=== PATIENT | female | born 1940 | race Caucasian/White ===

== ENCOUNTER 2016-10-19 19:39 | Emergency (ER) | payer MEDICARE, OTHER ==
[2016-10-19] MEDS ORDERED: Sodium Chloride 0.9% 1,000 ML IV ONE (19:56)
[2016-10-19 20:38] LABS: CHLORIDE,CL 90 mmol/L (98-107); SODIUM,NA 126 mmol/L (136-145)
--- NOTE | 2016-10-19 21:35 | EDM.PDOC ---
ED HPI GENERAL MEDICAL PROBLEM - General Chief Complaint: General Stated Complaint: Nausea, vomiting, weakness, headache Time Seen by Provider: 10/19/16 20:07 Source of Information: Reports: Patient, Family History Limitations: Reports: No limitations - History of Present Illness INITIAL COMMENTS - FREE TEXT/NARRATIVE: Patient had sinus drainage and scratchy throat for over a week, and went to her doctor who started her on Augmentin Flonase and Mucinex PSE. Feeling weak today. Nausea, vomited times one. 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 No fevers. Had chills earlier in week. No other c/o. Was told to drink plenty of fluids, Drinks a lot of water anyway. Says she is urinating frequently (just running out of me) Onset: gradual Duration: Day(s): (2-3) Location: Reports: generalized Quality: Reports: Other (no pain) Severity: moderate (weakness) Improves with: Reports: None Worsens with: Reports: None Associated Symptoms: Reports: nausea/vomiting (times one), weakness. 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(s) - Related Data Allergies Allergy/AdvReac Type Severity Reaction Status Date / Time morphine Allergy Hallucinati Verified 10/19/16 20:11 ons NSAIDS (Non-Steroidal Allergy Diarrhea Verified 10/19/16 20:11 Anti-Inflamma piroxicam [From Feldene] Allergy Difficulty Verified 10/19/16 20:11 Breathing Sulfa (Sulfonamide Allergy Abdominal Verified 10/19/16 20:11 Antibiotics) Pain tolmetin sodium Allergy Abdominal Verified 10/19/16 20:11 [From Tolectin] Pain Home Meds: Home Meds Amitriptyline [Elavil] 12.5 mg PO BEDTIME 12/23/13 [History] B Complex With Vitamin C [Super B Complex with C] 1 each PO DAILY 12/23/13 [ History] Cholecalciferol (Vitamin D3) [Vitamin D3] 1,000 unit PO DAILY 12/23/13 [History] Fexofenadine [Fatmata] 180 mg PO DAILY PRN 12/23/13 [History] Hydrochlorothiazide 12.5 mg PO DAILY 12/23/13 [History] Irbesartan [Avapro] 150 mg PO BEDTIME 12/23/13 [History] Multivitamin [Multi-Vitamin Daily] 1 each PO DAILY 12/23/13 [History] Omeprazole [Prilosec] 20 mg PO DAILY 12/23/13 [History] Verapamil [Verelan] 240 mg PO DAILY 12/23/13 [History] Amoxicillin/Potassium Clav [Amox-Clav 875-125 mg Tablet] 1 tab PO BID 10/19/16 [ History] Calcium/Magnesium/Zinc [Calcium & Magnesium plus Zinc] 1 cap PO ASDIRECTED 10/19 [History] Fluticasone Propionate [Flonase] 1 spray NASBOTH BID 10/19/16 [History] Guaifenesin/Pseudoephedrne HCl [Mucinex D ER 600-60 mg Tablet] 1 tab PO Q12H [History] Potassium Chloride 20 meq PO DAILY #10 tablet.er 10/19/16 [Rx] Ranitidine [Zantac] 150 mg PO BEDTIME 10/19/16 [History] Social & Family History - Alcohol Use Days Per Week of Alcohol Use: 0 - Living Situation & Occupation Living situation: Reports: ED ROS GENERAL - Review of Systems Review Of Systems: ROS reveals no pertinent complaints other than HPI. Constitutional: Reports: weakness HEENT: Reports: Sinus problem (pressure - improved since starting antibiotic) Respiratory: Reports: No Symptoms Cardiovascular: Reports: No symptoms Endocrine: Reports: no symptoms, polydypsia, polyuria GI/Abdominal: Reports: No symptoms : Reports: frequency Musculoskeletal: Reports: no symptoms Skin: Reports: no symptoms Neurological: Reports: No Symptoms Psychiatric: Reports: No symptoms Hematologic/Lymphatic: Reports: no symptoms Immunologic: Reports: no symptoms ED EXAM, GENERAL - Physical Exam Exam: See Below Exam Limited By: No limitations General Appearance: alert, WD/WN, no apparent distress Eye Exam: bilateral eye: EOMI, PERRL Ears: normal external exam, hearing grossly normal Nose: normal inspection, normal mucosa Throat/Mouth: Normal inspection, Normal oropharynx, Normal voice, No airway compromise Head: atraumatic, normocephalic Neck: normal inspection, supple, non-tender, full range of motion Respiratory/Chest: no respiratory distress, lungs clear, normal breath sounds, no accessory muscle use Cardiovascular: regular rate, rhythm, no edema, systolic murmur GI/Abdominal: normal bowel sounds, soft, non tender Back Exam: normal inspection, full range of motion. No: CVA tenderness (L), CVA tenderness (R) Extremities: slow capillary refill Neurological: alert, oriented, CN II-XII intact, no motor/sensory deficits, abnormal gait (unsteady) Psychiatric: normal affect, normal mood Skin Exam: Warm, Dry, Intact, Normal color, No rash Lymphatic: no adenopathy Course - Vital Signs Last Recorded V/S: Last Vital Signs Temp 37.1 C 10/19/16 19:48 Pulse 80 10/19/16 19:48 Resp 16 10/19/16 19:48 BP 181/81 H 10/19/16 19:48 Pulse Ox 100 10/19/16 19:48 - Orders/Labs/Meds Orders: Active Orders 24 hr Category Date Time Status Chest 2V [CR] Stat Exams 10/19/16 19:56 Taken Labs: Laboratory Tests 10/19/16 10/19/16 10/19/16 Range/Units 20:10 20:10 20:10 WBC 6.7 (4.0-10.2) K/uL RBC 4.48 (3.77-5.09) M/uL Hgb 13.1 (11.7-15.5) g/dL Hct 36.9 (34.0-46.0) % MCV 82.4 L (84.0-98.0) fL MCH 29.2 (28.2-33.3) pg MCHC 35.5 (31.7-36.0) g/dL RDW 12.2 (11.2-14.1) % Plt Count 209 (150-350) K/uL Neut % (Auto) 75.8 (45.0-80.0) % Lymph % (Auto) 13.7 (10.0-50.0) % [place] % (Auto) 8.8 (2.0-14.0) % Eos % (Auto) 0.4 (0.0-5.0) % Baso % (Auto) 1.3 (0.0-2.0) % Neut # (Auto) 5.10 (1.40-7.00) K/uL Lymph # (Auto) 0.92 (0.50-3.50) K/uL [place] # (Auto) 0.59 (0.00-1.00) K/uL Eos # (Auto) 0.03 (0.00-0.50) K/uL Baso # (Auto) 0.09 (0.00-0.20) K/uL Sodium 126 L (136-145) mmol/L Potassium 3.1 L (3.5-5.1) mmol/L Chloride 90 L (98-107) mmol/L Carbon Dioxide 21.9 (21.0-32.0) mmol/L BUN 10 (7-18) mg/dL Creatinine 0.60 (0.51-1.17) mg/dL Est Cr Clr Drug Dosing TNP Estimated GFR (MDRD) > 60 mL/min Glucose 105 (74-106) mg/dL Calcium 8.6 (8.5-10.1) mg/dL Magnesium 1.7 L (1.8-2.4) mg/dL Total Bilirubin 0.8 (0.2-1.0) mg/dL AST 22 (15-37) U/L ALT 34 (12-78) U/L Alkaline Phosphatase 90 (46-116) IU/L Troponin I 0.001 (0.000-0.056) ng/mL Total Protein 7.5 (6.4-8.2) g/dL Albumin 4.1 (3.4-5.0) g/dL Specimen Type Urine Color Urine Appearance Urine pH (5.0-9.0) Ur Specific [place] (1.005-1.030) Urine Protein (NEGATIVE) mg/dL Urine Glucose (UA) (NEGATIVE) mg/dL Urine Ketones (NEGATIVE) mg/dL Urine Occult Blood (NEGATIVE) Urine Nitrite (NEGATIVE) Urine Bilirubin (NEGATIVE) Urine Urobilinogen (0.2-1.0) E.U./dL Ur Leukocyte Esterase (NEGATIVE) Urine RBC /HPF Urine WBC /HPF Ur Epithelial Cells /LPF Amorphous Sediment (0/HPF) /HPF Urine Bacteria (NONE TO FEW) /HPF 10/19/16 Range/Units 20:50 WBC (4.0-10.2) K/uL RBC (3.77-5.09) M/uL Hgb (11.7-15.5) g/dL Hct (34.0-46.0) % MCV (84.0-98.0) fL MCH (28.2-33.3) pg MCHC (31.7-36.0) g/dL RDW (11.2-14.1) % Plt Count (150-350) K/uL Neut % (Auto) (45.0-80.0) % Lymph % (Auto) (10.0-50.0) % [place] % (Auto) (2.0-14.0) % Eos % (Auto) (0.0-5.0) % Baso % (Auto) (0.0-2.0) % Neut # (Auto) (1.40-7.00) K/uL Lymph # (Auto) (0.50-3.50) K/uL [place] # (Auto) (0.00-1.00) K/uL Eos # (Auto) (0.00-0.50) K/uL Baso # (Auto) (0.00-0.20) K/uL Sodium (136-145) mmol/L Potassium (3.5-5.1) mmol/L Chloride (98-107) mmol/L Carbon Dioxide (21.0-32.0) mmol/L BUN (7-18) mg/dL Creatinine (0.51-1.17) mg/dL Est Cr Clr Drug Dosing Estimated GFR (MDRD) mL/min Glucose (74-106) mg/dL Calcium (8.5-10.1) mg/dL Magnesium (1.8-2.4) mg/dL Total Bilirubin (0.2-1.0) mg/dL AST (15-37) U/L ALT (12-78) U/L Alkaline Phosphatase (46-116) IU/L Troponin I (0.000-0.056) ng/mL Total Protein (6.4-8.2) g/dL Albumin (3.4-5.0) g/dL Specimen Type Urincc Urine Color Light yellow Urine Appearance Slightly cloudy Urine pH 7.5 (5.0-9.0) Ur Specific [place] 1.015 (1.005-1.030) Urine Protein Negative (NEGATIVE) mg/dL Urine Glucose (UA) Negative (NEGATIVE) mg/dL Urine Ketones 15 H (NEGATIVE) mg/dL Urine Occult Blood Trace-intact H (NEGATIVE) Urine Nitrite Negative (NEGATIVE) Urine Bilirubin Negative (NEGATIVE) Urine Urobilinogen 0.2 (0.2-1.0) E.U./dL Ur Leukocyte Esterase Negative (NEGATIVE) Urine RBC 0-5 /HPF Urine WBC Not seen /HPF Ur Epithelial Cells Not seen /LPF Amorphous Sediment Moderate H (0/HPF) /HPF Urine Bacteria Moderate H (NONE TO FEW) /HPF Meds: Medications Discontinued Medications Generic Name Dose Route Start Last Admin Trade Name Bre PRN Reason Stop Dose Admin Sodium Chloride 1,000 mls @ 999 mls/hr 10/19/16 19:56 10/19/16 20:12 Normal Saline IV 10/19/16 20:56 999 mls/hr .BOLUS ONE Administration Potassium Chloride 40 meq 10/19/16 21:42 Klor-Con M20 PO 10/19/16 21:43 ONETIME ONE - Re-Assessments/Exams Free Text/Narrative Re-Assessment/Exam: 10/19/16 21:40 Improved with first NS Departure - Departure Time of Disposition: 22:30 Disposition: Home, Self-Care 01 Condition: good Clinical Impression: Hyponatremia, Hypokalemia, Polydipsia Prescriptions: Potassium Chloride 20 meq PO DAILY #10 tablet.er Forms: ED Department Discharge - Problem List Review Problem List Initiated/Reviewed/Updated: No - My Orders Last 24 Hours: My Active Orders 10/19/16 19:56 Chest 2V [CR] Stat - Assessment/Plan Last 24 Hours: My Active Orders 10/19/16 19:56 Chest 2V [CR] Stat Assessment:: 1. Hyponatremia - secondary to polydipsia 2. Hypomagnesemia, HypoKalemia 3. Resolving upper respiratory infection Plan: 1. Take the potassium pills for the next 10 days. 2. Decrease plain water consumption. Increase salt intake. 3. Eat potassium rich foods 4. Discuss taking magnesium pills with your doctor, and have your blood levels of sodium, potassium, and magnesium rechecked
[2016-10-19] MEDS ORDERED: Potassium Chloride 20 MEQ Tab.ER PO ONE (21:42)
[2016-10-19] MEDS ORDERED: Sodium Chloride 0.9% 1,000 ML IV SCH (21:45)
[2016-10-19] MEDS ORDERED: Calcium Carbonate 500 MG Tab.Chew PO ONE (21:51)
[2016-10-19] MEDS ORDERED: Meclizine 25 MG Tab PO ONE (22:21)
[2016-10-20 00:19] VITALS: BP 180/70
== END 2016-10-19 23:44 | disposition home or self-care (01) ==
LOC: LL.ED 19:39
DX: E87.1 Hypo-osmolality and hyponatremia (principal); E87.6 Hypokalemia; R63.1 Polydipsia; Z88.6 Allergy status to analgesic agent; Z88.2 Allergy status to sulfonamides; Z88.8 Allergy status to other drugs, medicaments and biological substances; Z79.899 Other long term (current) drug therapy
CPT/HCPCS: 36415; 71020; 80053; 81001; 83735; 84484; 85025; 87804; 96361; 96365; 99285; A9270; J7030; 99283; J3475

== ENCOUNTER 2017-07-21 09:04 | Emergency (ER) | payer MEDICARE, OTHER ==
[2017-07-21] MEDS ORDERED: Sodium Chloride 0.9% 1,000 ML IV SCH (09:15)
[2017-07-21 10:21] LABS: CHLORIDE,CL 94 mmol/L (98-107); SODIUM,NA 130 mmol/L (136-145)
--- NOTE | 2017-07-21 10:51 | EDM.PDOC ---
ED HPI GENERAL MEDICAL PROBLEM - General Chief Complaint: General Stated Complaint: weak, dizzy, diarrhea Time Seen by Provider: 07/21/17 09:15 Source of Information: Reports: Patient History Limitations: Reports: No Limitations - History of Present Illness INITIAL COMMENTS - FREE TEXT/NARRATIVE: Patient is a 77-year-old who came into the ER for evaluation secondary to multiple episodes of diarrhea about 9 months ago she had similar episodes and was hyponatremic and hypo-magnesium and hypokalemia. At this time patient is feeling pretty good but concern her diarrhea seems to be controlled at this point states that when she gets anxious she also gets diarrhea and the has made her anxious. 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 (see below) (Patient took Zantac and Pepto- Bismol tonight) - Related Data Allergies Allergy/AdvReac Type Severity Reaction Status Date / Time morphine Allergy Hallucinati Verified 07/21/17 09:13 ons NSAIDS (Non-Steroidal Allergy Diarrhea Verified 07/21/17 09:13 Anti-Inflamma piroxicam [From Feldene] Allergy Difficulty Verified 07/21/17 09:13 Breathing Sulfa (Sulfonamide Allergy Abdominal Verified 07/21/17 09:13 Antibiotics) Pain tolmetin sodium Allergy Abdominal Verified 07/21/17 09:13 [From Tolectin] Pain Home Meds: Home Meds Amitriptyline [Elavil] 12.5 mg PO BEDTIME 12/23/13 [History] B Complex With Vitamin C [Super B Complex with C] 1 each PO DAILY 12/23/13 [ History] Cholecalciferol (Vitamin D3) [Vitamin D3] 1,000 unit PO DAILY 12/23/13 [History] Hydrochlorothiazide 12.5 mg PO DAILY 12/23/13 [History] Irbesartan [Avapro] 150 mg PO BEDTIME 12/23/13 [History] Multivitamin [Multi-Vitamin Daily] 1 each PO DAILY 12/23/13 [History] Verapamil [Verelan] 240 mg PO DAILY 12/23/13 [History] Ranitidine [Zantac] 150 mg PO BEDTIME 10/19/16 [History] Past Medical History HEENT History: Reports: Impaired Vision Cardiovascular History: Reports: Heart Murmur, Hypertension Endocrine/Metabolic History: Reports: Vitamin D Deficiency Social & Family History - Tobacco Use Smoking Status *Q: Never Smoker - Caffeine Use Caffeine Use: Reports: Tea - Alcohol Use Days Per Week of Alcohol Use: 0 - Recreational Drug Use Recreational Drug Use: No - Living Situation & Occupation Living situation: Reports: ED ROS GENERAL - Review of Systems Review Of Systems: See Below Constitutional: Reports: No Symptoms HEENT: Reports: No Symptoms Respiratory: Reports: No Symptoms Cardiovascular: Reports: No Symptoms Endocrine: Reports: No Symptoms GI/Abdominal: Reports: Diarrhea, Nausea : Reports: No Symptoms Musculoskeletal: Reports: No Symptoms Skin: Reports: No Symptoms ED EXAM, GENERAL - Physical Exam Exam: See Below Exam Limited By: No Limitations General Appearance: Alert, WD/WN, No Apparent Distress Ears: Normal External Exam, Normal Canal, Hearing Grossly Normal, Normal TMs Ear Exam: Bilateral Ear: Auricle Normal, Canal Normal, TM normal Nose: Normal Inspection, Normal Mucosa, No Blood Throat/Mouth: Normal Inspection, Normal Lips, Normal Teeth, Normal Gums, Normal Oropharynx, Normal Voice, No Airway Compromise Head: Atraumatic, Normocephalic Neck: Normal Inspection, Supple, Non-Tender, Full Range of Motion Respiratory/Chest: No Respiratory Distress, Lungs Clear, Normal Breath Sounds, No Accessory Muscle Use, Chest Non-Tender Cardiovascular: Normal Peripheral Pulses, Regular Rate, Rhythm, Tachycardia, Systolic Murmur GI/Abdominal: Normal Bowel Sounds, Soft, Non-Tender, No Organomegaly, No Distention, No Abnormal Bruit, No Mass (Female) Exam: Deferred Rectal (Female) Exam: Deferred Back Exam: Normal Inspection, Full Range of Motion, NT Extremities: Normal Inspection, Normal Range of Motion, Non-Tender, Normal Capillary Refill, No Pedal Edema Neurological: Alert, Oriented, CN II-XII Intact, Normal Cognition, Normal Gait, Normal Reflexes, No Motor/Sensory Deficits Psychiatric: Normal Affect, Normal Mood Skin Exam: Warm, Dry, Intact, Normal Color, No Rash Course - Orders/Labs/Meds Orders: Active Orders 24 hr Category Date Time Status Sodium Chloride 0.9% [Normal Saline] 1,000 ml Med 07/21/17 09:15 Active IV ASDIRECTED Medication Orders Sodium Chloride (Normal Saline) 1,000 mls @ 150 mls/hr IV ASDIRECTED [facility] Labs: Laboratory Tests 07/21/17 07/21/17 Range/Units 09:26 09:56 WBC 9.6 (4.0-10.2) K/uL RBC 4.60 (3.77-5.09) M/uL Hgb 13.8 (11.7-15.5) g/dL Hct 39.6 (34.0-46.0) % MCV 86.1 D (84.0-98.0) fL MCH 30.0 (28.2-33.3) pg MCHC 34.8 (31.7-36.0) g/dL RDW 12.6 (11.2-14.1) % Plt Count 198 (150-350) K/uL Neut % (Auto) 80.7 H (45.0-80.0) % Lymph % (Auto) 11.8 (10.0-50.0) % [place] % (Auto) 6.8 (2.0-14.0) % Eos % (Auto) 0.3 (0.0-5.0) % Baso % (Auto) 0.4 (0.0-2.0) % Neut # (Auto) 7.74 H (1.40-7.00) K/uL Lymph # (Auto) 1.13 (0.50-3.50) K/uL [place] # (Auto) 0.65 (0.00-1.00) K/uL Eos # (Auto) 0.03 (0.00-0.50) K/uL Baso # (Auto) 0.04 (0.00-0.20) K/uL Sodium 130 L (136-145) mmol/L Potassium 3.4 L (3.5-5.1) mmol/L Chloride 94 L (98-107) mmol/L Carbon Dioxide 24.4 (21.0-32.0) mmol/L BUN 11 (7-18) mg/dL Creatinine 0.63 (0.51-1.17) mg/dL Est Cr Clr Drug Dosing 54.57 mL/min Estimated GFR (MDRD) > 60 mL/min Glucose 106 (74-106) mg/dL Calcium 9.3 (8.5-10.1) mg/dL Magnesium 1.7 L (1.8-2.4) mg/dL Total Bilirubin 0.5 (0.2-1.0) mg/dL AST 20 (15-37) U/L ALT 29 (12-78) U/L Alkaline Phosphatase 90 (46-116) IU/L Total Protein 7.1 (6.4-8.2) g/dL Albumin 3.9 (3.4-5.0) g/dL Meds: Medications Generic Name Dose Route Start Last Admin Trade Name Freq PRN Reason Stop Dose Admin Sodium Chloride 1,000 mls @ 150 mls/hr 07/21/17 09:15 Normal Saline IV ASDIRECTED YOGESH Departure - Departure Time of Disposition: 10:55 Disposition: Home, Self-Care 01 Clinical Impression: Gastroenteritis - Discharge Information Referrals: Gordon Dinero MD [Primary Care Provider] - Care Plan Goals: At this time patient will be sent home she is to oral hydrate with Gatorade and can take magnesium oxide 200 twice a day also she is to continue the Pepto- Bismol and follow-up with private M.D. - My Orders Last 24 Hours: My Active Orders 07/21/17 09:15 Sodium Chloride 0.9% [Normal Saline] 1,000 ml IV ASDIRECTED - Assessment/Plan Last 24 Hours: My Active Orders 07/21/17 09:15 Sodium Chloride 0.9% [Normal Saline] 1,000 ml IV ASDIRECTED
[2017-07-21 16:29] VITALS: BP 143/64
== END 2017-07-21 11:45 | disposition home or self-care (01) ==
LOC: LL.ED 09:04
DX: K52.9 Noninfective gastroenteritis and colitis, unspecified (principal); I10 Essential (primary) hypertension; Z88.5 Allergy status to narcotic agent; Z88.8 Allergy status to other drugs, medicaments and biological substances; Z88.2 Allergy status to sulfonamides; Z79.899 Other long term (current) drug therapy
CPT/HCPCS: 36415; 80053; 83735; 85025; 96360; 96361; 99284; J7030; 99283

== ENCOUNTER 2019-03-14 21:56 | Observation (INO) | payer MEDICARE, OTHER ==
[2019-03-14 22:44] LABS: CHLORIDE,CL 87 mmol/L (98-107)
[2019-03-14 22:47] LABS: SODIUM,NA 123 mmol/L (136-145)
--- NOTE | 2019-03-14 23:13 | EDM.PDOC ---
ED HPI GENERAL MEDICAL PROBLEM - General Chief Complaint: General Stated Complaint: Nausea, weakness Time Seen by Provider: 03/14/19 22:40 Source of Information: Reports: Patient History Limitations: Reports: No Limitations - History of Present Illness INITIAL COMMENTS - FREE TEXT/NARRATIVE: Patient present to ER with complaint of "not feeling well". Patient vague in describing specific complaints. During ROS it was noted that she feels a bit lightheaded. Was drinking Gatorade and coughed while she drank, which led her to throw up once. She says she drinks Gatorade because she often has low electrolytes. No additional nausea /emesis/bowel changes reported. She also feels mildly weak. Patient feels that this is due to her electrolytes being low, and says that she has been evaluated for similar complaints in past and it was always due to her low electrolytes. No fevers, but she thinks she may have been chilled earlier. No HEENT changes such as headache/sore throat/cold symptoms/vision changes/ear complaints. No specific cough/wheezing/SOB/pleuritic pain Denies abdominal pain, nausea. No bowel changes. No UTI complaints/urinary changes. Denies focal neuro changes/rashes. Has scheduled colonoscopy in several days. Just started the diet today and took two Dulcolax this evening. Throat Pain Score (Numeric/FACES): 4 - Related Data Allergies Allergy/AdvReac Type Severity Reaction Status Date / Time morphine Allergy Hallucinati Verified 03/14/19 21:58 ons NSAIDS (Non-Steroidal Allergy Diarrhea Verified 03/14/19 21:58 Anti-Inflamma piroxicam [From Feldene] Allergy Difficulty Verified 03/14/19 21:58 Breathing Sulfa (Sulfonamide Allergy Abdominal Verified 03/14/19 21:58 Antibiotics) Pain tolmetin sodium Allergy Abdominal Verified 03/14/19 21:58 [From Tolectin] Pain Home Meds: Home Meds Amitriptyline [Elavil] 12.5 mg PO BEDTIME 12/23/13 [History] B Complex With Vitamin C [Super B Complex with C] 1 each PO DAILY 12/23/13 [ History] Irbesartan [Avapro] 150 mg PO BEDTIME 12/23/13 [History] Multivitamin [Multi-Vitamin Daily] 1 each PO DAILY 12/23/13 [History] Verapamil [Verelan] 240 mg PO DAILY 12/23/13 [History] hydroCHLOROthiazide [Hydrochlorothiazide] 12.5 mg PO DAILY 12/23/13 [History] Ranitidine [Zantac] 150 mg PO BEDTIME 10/19/16 [History] Calcium Carb/Mag Ox/Zinc Sulf [Pfrxceh-Xxvxtldpm-Mezv Tablet] 1 tab PO DAILY [History] Cranberry Fruit Extract [Cranberry] 1 tab PO DAILY 03/14/19 [History] Docusate Sodium [Stool Softener] 1 tab PO BEDTIME 03/14/19 [History] Lactobac Cmb #3/Fos/Pantethine [Probiotic & Acidophilus] 1 tab PO DAILY [History] Potassium 1 tab PO DAILY 03/14/19 [History] Past Medical History HEENT History: Reports: Allergic Rhinitis, Impaired Vision Cardiovascular History: Reports: Heart Murmur, Hypertension Gastrointestinal History: Reports: Colon Polyp, GERD, Hiatal Hernia Genitourinary History: Reports: UTI, Recurrent, Other (See Below) Other Genitourinary History: Difficulty emptying bladder 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: Neurological History: Reports: Migraines Psychiatric History: Reports: Anxiety Endocrine/Metabolic History: Reports: Vitamin D Deficiency - Past Surgical History HEENT Surgical History: Reports: Tonsillectomy GI Surgical History: Reports: Appendectomy, Cholecystectomy, Colonoscopy, EGD Neurological Surgical History: Reports: Lumbar Spine Other Neurological Surgeries/Procedures: Surgery to repair pinched nerve Social & Family History - Tobacco Use Smoking Status *Q: Never Smoker - Caffeine Use Caffeine Use: Reports: None - Alcohol Use Alcohol Use History: No - Recreational Drug Use Recreational Drug Use: No - Living Situation & Occupation Living situation: Reports: ED ROS GENERAL - Review of Systems Review Of Systems: ROS reveals no pertinent complaints other than HPI. ED EXAM, GENERAL - Physical Exam Exam: See Below Exam Limited By: No Limitations General Appearance: Alert, No Apparent Distress, Anxious Eye Exam: Bilateral Eye: EOMI, PERRL Ears: Normal External Exam, Normal Canal Nose: Normal Inspection Throat/Mouth: Normal Lips, Normal Voice, No Airway Compromise Head: Atraumatic, Normocephalic Neck: Normal Inspection, Supple, Non-Tender, Full Range of Motion Respiratory/Chest: No Respiratory Distress, Lungs Clear, Normal Breath Sounds, No Accessory Muscle Use, Chest Non-Tender Cardiovascular: Normal Peripheral Pulses, Regular Rate, Rhythm, No Edema, Systolic Murmur GI/Abdominal: Normal Bowel Sounds, Soft, Non-Tender, No Distention (Female) Exam: Deferred Rectal (Female) Exam: Deferred Back Exam: Normal Inspection. No: CVA Tenderness (L), CVA Tenderness (R), Muscle Spasm Extremities: Normal Inspection, Non-Tender, Normal Capillary Refill Neurological: Alert, Oriented, Normal Cognition, Normal Gait, No Motor/Sensory Deficits Psychiatric: Anxious Skin Exam: Warm, Dry, Intact, Normal Color Course - Vital Signs Last Recorded V/S: Last Vital Signs Temp 36.4 C 03/14/19 21:56 Pulse 67 03/14/19 22:56 Resp 16 03/14/19 22:56 BP 164/65 H 03/14/19 22:56 Pulse Ox 99 03/14/19 22:56 - Orders/Labs/Meds Orders: Active Orders 24 hr Category Date Time Status UA W/MICROSCOPIC [URIN] Stat Lab 03/14/19 22:12 Ordered Labs: Laboratory Tests 03/14/19 03/14/19 03/14/19 Range/Units 20:20 22:20 22:20 WBC 9.1 (4.0-10.2) K/uL RBC 4.34 (3.77-5.09) M/uL Hgb 13.4 (11.7-15.5) g/dL Hct 36.9 (34.0-46.0) % MCV 85.0 (84.0-98.0) fL MCH 30.9 (28.2-33.3) pg MCHC 36.3 H (31.7-36.0) g/dL RDW 12.1 (11.2-14.1) % Plt Count 195 (150-350) K/uL Neut % (Auto) 70.1 (45.0-80.0) % Lymph % (Auto) 20.8 (10.0-50.0) % [place] % (Auto) 7.9 (2.0-14.0) % Eos % (Auto) 1.0 (0.0-5.0) % Baso % (Auto) 0.2 (0.0-2.0) % Neut # (Auto) 6.35 (1.40-7.00) K/uL Lymph # (Auto) 1.88 (0.50-3.50) K/uL [place] # (Auto) 0.72 (0.00-1.00) K/uL Eos # (Auto) 0.09 (0.00-0.50) K/uL Baso # (Auto) 0.02 (0.00-0.20) K/uL Sodium 123 L* (136-145) mmol/L Potassium 3.0 L (3.5-5.1) mmol/L Chloride 87 L (98-107) mmol/L Carbon Dioxide 23.1 (21.0-32.0) mmol/L BUN 13 (7-18) mg/dL Creatinine 0.62 (0.51-1.17) mg/dL Est Cr Clr Drug Dosing 53.71 mL/min Estimated GFR (MDRD) > 60 mL/min Glucose 125 H (74-106) mg/dL Calcium 8.4 L (8.5-10.1) mg/dL Magnesium 1.5 L (1.8-2.4) mg/dL Total Bilirubin 0.7 (0.2-1.0) mg/dL AST 22 (15-37) U/L ALT 29 (12-78) U/L Alkaline Phosphatase 84 (46-116) IU/L Troponin I 0.000 (0.000-0.056) ng/mL Total Protein 7.2 (6.4-8.2) g/dL Albumin 3.8 (3.4-5.0) g/dL - Re-Assessments/Exams Free Text/Narrative Re-Assessment/Exam: Non-focal exam. Noted to have low Mg/K/Na/CL on labs. WBC normal. Patient is uncertain is to her "normal" levels of electrolytes and notes that they are just always low. Uncertain how much change today's values reflect. Low Mg and Na are related to fatigue/weakness/lightheaded sensation. However there appears to be a definite anxiety component. Son also feels that anxiety is always an issue when he has brought his mother to the ER/doctor for similar complaints. He says that the colonoscopy is the likely trigger at this time. Triggers in the past have included upcoming trips/flights and other events. When patient agreed to be admitted observation and receive treatment for the deficiencies, she immediately requested something for her anxiety and reported to us that she was very anxious now that she would not be able to go home. Departure - Departure Time of Disposition: 23:08 Disposition: Refer to Observation Condition: Good Clinical Impression: Hypokalemia, Hyponatremia, Hypomagnesemia - Discharge Information *PRESCRIPTION DRUG MONITORING PROGRAM REVIEWED*: Not Applicable *COPY OF PRESCRIPTION DRUG MONITORING REPORT IN PATIENT RINA: Not Applicable Referrals: Gordon Dinero MD [Primary Care Provider] - - Problem List & Annotations (1) Hyponatremia SNOMED Code(s): 48072321 Code(s): E87.1 - HYPO-OSMOLALITY AND HYPONATREMIA Status: Chronic Priority: High Current Visit: Yes Annotation/Comment:: Exacerbation of hyponatremia. Will give hypertonic saline overnight and recheck levels in AM (2) Hypokalemia SNOMED Code(s): 69150447 Code(s): E87.6 - HYPOKALEMIA Status: Chronic Priority: Medium Current Visit: Yes Annotation/Comment:: Additional supplementation of potassium will be given. Recheck levels tomorrow. (3) Hypomagnesemia SNOMED Code(s): 098985073 Code(s): E83.42 - HYPOMAGNESEMIA Status: Chronic Priority: High Current Visit: Yes Annotation/Comment:: History of low Magnesium. Will give supplemental Mag overnight and recheck level tomorrow. Increase supplement dose at time of discharge. (4) GERD (gastroesophageal reflux disease) SNOMED Code(s): 033514263 Code(s): K21.9 - GASTRO-ESOPHAGEAL REFLUX DISEASE WITHOUT ESOPHAGITIS Status: Chronic Priority: Low Current Visit: No Annotation/Comment:: Patient admits to poor eating habits and snacking before bed, exacerbating symptoms. Time spent encouraging patient to make dietary changes such as not eating 3 hours prior to bedtime and avoiding processed food/common heartburn triggers. Patient is uncertain if she can make these changes. Qualifiers: Esophagitis presence: esophagitis presence not specified Qualified Code(s) : K21.9 - Gastro-esophageal reflux disease without esophagitis (5) Anxiety SNOMED Code(s): 78051480 Code(s): F41.9 - ANXIETY DISORDER, UNSPECIFIED Status: Chronic Priority: Medium Current Visit: Yes Annotation/Comment:: Patient is anxious about her colonoscopy prep. Son notes that patient often presents to ER with complaints of not feeling well/dizzy when she is stressed and experiencing anxiety. He feels tonight's visit is related to the colonoscopy scheduled. - Problem List Review Problem List Initiated/Reviewed/Updated: Yes - My Orders Last 24 Hours: My Active Orders 03/14/19 22:12 UA W/MICROSCOPIC [URIN] Stat - Assessment/Plan Admission H&P: Please use this note as an admission H&P Last 24 Hours: My Active Orders 03/14/19 22:12 UA W/MICROSCOPIC [URIN] Stat Assessment:: As above. Plan: Patient stable and suitable for general supervision. Will give supplemental Na/K /Mg overnight. Anticipate patient will likely be discharged within 24 hours.
[2019-03-14] MEDS ORDERED: LORazepam 2 MG/ML SDV IVPUSH ONE (23:28)
[2019-03-14] MEDS ORDERED: Ondansetron 4 MG/2 ML SDV IVPUSH ONE (23:28)
[2019-03-14] MEDS ORDERED: Sodium Chloride 3% 500 ML IV SCH (23:30)
[2019-03-14] MEDS ORDERED: Pantoprazole 40 MG Vial IVPUSH ONE (23:33)
[2019-03-14] MEDS ORDERED: Ondansetron 4 MG/2 ML SDV IVPUSH PRN (23:34)
[2019-03-14] MEDS ORDERED: LORazepam 1 MG Tab PO PRN (23:38)
[2019-03-14] MEDS ORDERED: Docusate Sodium 100 MG Cap PO SCH (23:47)
[2019-03-15] MEDS ORDERED: Potassium Chloride 10 MEQ Tab.ER PO ONE ×2 (00:01→04:00)
[2019-03-15] MEDS: Sodium Chloride 0.9% 10 ML Syringe FLUSH PRN ×3 (00:11→10:25)
[2019-03-15 07:38] LABS: HEMOGLOBIN A1C 5.5 % (4.3-5.7)
[2019-03-15 07:51] LABS: CHLORIDE,CL 92 mmol/L (98-107); SODIUM,NA 126 mmol/L (136-145)
[2019-03-15] MEDS ORDERED: Verapamil 120 MG Tab.ER PO SCH (08:00)
[2019-03-15] MEDS ORDERED: Hydrochlorothiazide 25 MG Tab PO SCH (08:00)
[2019-03-15] MEDS: Sodium Chloride 1 GM Tab PO SCH ×3 (10:11→16:43)
[2019-03-15] MEDS ORDERED: Sodium Chloride 1 GM Tab PO ONE ×2 (13:16→19:00)
--- NOTE | 2019-03-15 14:12 | PCM.PN ---
- General Info Date of Service: 03/15/19 Admission Dx/Problem (Free Text): Patient admitted for treatment of hyponatremia, along with low K and Mg. Presenting complaints included fatigue, mild lightheadedness, single episode emesis. History of chronically low levels Na/K/Mg. Has had similar symptoms before when levels get really low per self report. Subjective Update: Patient feels improved. 3 episodes of emesis since admission to observation ( one was after taking a NaCl tab). She says that she feels much better now. Tolerating clear liquid diet. Functional Status: Reports: Pain Controlled, Tolerating Diet, Ambulating, Urinating. Denies: New Symptoms - Review of Systems General: Reports: Fatigue. Denies: Fever, Chills, Night Sweats HEENT: Reports: Glasses Pulmonary: Reports: No Symptoms Cardiovascular: Reports: No Symptoms Gastrointestinal: Reports: Nausea (currently none), Vomiting (currently none). Denies: Abdominal Pain, Constipation, Diarrhea, Difficulty Swallowing Genitourinary: Reports: No Symptoms Musculoskeletal: Reports: No Symptoms (no acute changes from baseline) Skin: Reports: No Symptoms Neurological: Reports: Dizziness (mild). Denies: Headache, Numbness, Tingling, Trouble Speaking, Difficulty Walking, Change in Speech, Gait Disturbance Psychiatric: Reports: Anxiety - Patient Data Vitals - Most Recent: Last Vital Signs Temp 36.4 C 03/15/19 11:07 Pulse 73 03/15/19 11:07 Resp 12 03/15/19 11:07 BP 158/79 H 03/15/19 11:07 Pulse Ox 100 03/15/19 11:07 Weight - Most Recent: 56.019 kg I&O - Last 24 Hours: Intake & Output 03/14/19 03/15/19 03/15/19 22:59 06:59 14:59 Intake Total 784 2214 Output Total 1650 1300 Balance -866 914 Lab Results Last 24 Hours: Laboratory Results - last 24 hr 03/14/19 03/14/19 03/14/19 Range/Units 20:20 22:20 22:20 WBC 9.1 (4.0-10.2) K/uL RBC 4.34 (3.77-5.09) M/uL Hgb 13.4 (11.7-15.5) g/dL Hct 36.9 (34.0-46.0) % MCV 85.0 (84.0-98.0) fL MCH 30.9 (28.2-33.3) pg MCHC 36.3 H (31.7-36.0) g/dL RDW 12.1 (11.2-14.1) % Plt Count 195 (150-350) K/uL Neut % (Auto) 70.1 (45.0-80.0) % Lymph % (Auto) 20.8 (10.0-50.0) % [place] % (Auto) 7.9 (2.0-14.0) % Eos % (Auto) 1.0 (0.0-5.0) % Baso % (Auto) 0.2 (0.0-2.0) % Neut # (Auto) 6.35 (1.40-7.00) K/uL Lymph # (Auto) 1.88 (0.50-3.50) K/uL [place] # (Auto) 0.72 (0.00-1.00) K/uL Eos # (Auto) 0.09 (0.00-0.50) K/uL Baso # (Auto) 0.02 (0.00-0.20) K/uL Sodium 123 L* (136-145) mmol/L Potassium 3.0 L (3.5-5.1) mmol/L Chloride 87 L (98-107) mmol/L Carbon Dioxide 23.1 (21.0-32.0) mmol/L BUN 13 (7-18) mg/dL Creatinine 0.62 (0.51-1.17) mg/dL Est Cr Clr Drug Dosing 53.71 mL/min Estimated GFR (MDRD) > 60 mL/min Glucose 125 H (74-106) mg/dL Hemoglobin A1c (4.3-5.7) % Calcium 8.4 L (8.5-10.1) mg/dL Magnesium 1.5 L (1.8-2.4) mg/dL Total Bilirubin 0.7 (0.2-1.0) mg/dL AST 22 (15-37) U/L ALT 29 (12-78) U/L Alkaline Phosphatase 84 (46-116) IU/L Troponin I 0.000 (0.000-0.056) ng/mL Total Protein 7.2 (6.4-8.2) g/dL Albumin 3.8 (3.4-5.0) g/dL Amylase (25-115) U/L Lipase (73-393) U/L Specimen Type Urine Color (YELLOW) Urine Appearance (CLEAR) Urine pH (5.0-9.0) Ur Specific [place] (1.005-1.030) Urine Protein (NEGATIVE) mg/dL Urine Glucose (UA) (NEGATIVE) mg/dL Urine Ketones (NEGATIVE) mg/dL Urine Occult Blood (NEGATIVE) Urine Nitrite (NEGATIVE) Urine Bilirubin (NEGATIVE) Urine Urobilinogen (0.2-1.0) E.U./dL Ur Leukocyte Esterase (NEGATIVE) Urine RBC /HPF Urine WBC /HPF Ur Epithelial Cells /LPF Urine Bacteria (NONE TO FEW) /HPF 03/14/19 03/15/19 03/15/19 Range/Units 23:10 07:15 07:15 WBC 8.0 (4.0-10.2) K/uL RBC 4.61 (3.77-5.09) M/uL Hgb 14.2 (11.7-15.5) g/dL Hct 39.1 (34.0-46.0) % MCV 84.8 (84.0-98.0) fL MCH 30.8 (28.2-33.3) pg MCHC 36.3 H (31.7-36.0) g/dL RDW 12.1 (11.2-14.1) % Plt Count 217 (150-350) K/uL Neut % (Auto) 64.7 (45.0-80.0) % Lymph % (Auto) 23.5 (10.0-50.0) % [place] % (Auto) 10.1 (2.0-14.0) % Eos % (Auto) 1.4 (0.0-5.0) % Baso % (Auto) 0.3 (0.0-2.0) % Neut # (Auto) 5.16 (1.40-7.00) K/uL Lymph # (Auto) 1.87 (0.50-3.50) K/uL [place] # (Auto) 0.80 (0.00-1.00) K/uL Eos # (Auto) 0.11 (0.00-0.50) K/uL Baso # (Auto) 0.02 (0.00-0.20) K/uL Sodium 126 L (136-145) mmol/L Potassium 3.6 (3.5-5.1) mmol/L Chloride 92 L (98-107) mmol/L Carbon Dioxide 24.6 (21.0-32.0) mmol/L BUN 8 (7-18) mg/dL Creatinine 0.52 (0.51-1.17) mg/dL Est Cr Clr Drug Dosing 64.04 mL/min Estimated GFR (MDRD) > 60 mL/min Glucose 101 (74-106) mg/dL Hemoglobin A1c (4.3-5.7) % Calcium 8.2 L (8.5-10.1) mg/dL Magnesium 2.2 (1.8-2.4) mg/dL Total Bilirubin (0.2-1.0) mg/dL AST (15-37) U/L ALT (12-78) U/L Alkaline Phosphatase (46-116) IU/L Troponin I (0.000-0.056) ng/mL Total Protein (6.4-8.2) g/dL Albumin (3.4-5.0) g/dL Amylase (25-115) U/L Lipase (73-393) U/L Specimen Type Urinvoid Urine Color Yellow (YELLOW) Urine Appearance Slightly cloudy H (CLEAR) Urine pH 7.5 (5.0-9.0) Ur Specific [place] 1.015 (1.005-1.030) Urine Protein Negative (NEGATIVE) mg/dL Urine Glucose (UA) Negative (NEGATIVE) mg/dL Urine Ketones Negative (NEGATIVE) mg/dL Urine Occult Blood Trace-intact H (NEGATIVE) Urine Nitrite Positive H (NEGATIVE) Urine Bilirubin Negative (NEGATIVE) Urine Urobilinogen 0.2 (0.2-1.0) E.U./dL Ur Leukocyte Esterase Negative (NEGATIVE) Urine RBC 0-5 /HPF Urine WBC 0-5 /HPF Ur Epithelial Cells Not seen /LPF Urine Bacteria Many H (NONE TO FEW) /HPF 03/15/19 03/15/19 Range/Units 07:15 07:15 WBC (4.0-10.2) K/uL RBC (3.77-5.09) M/uL Hgb (11.7-15.5) g/dL Hct (34.0-46.0) % MCV (84.0-98.0) fL MCH (28.2-33.3) pg MCHC (31.7-36.0) g/dL RDW (11.2-14.1) % Plt Count (150-350) K/uL Neut % (Auto) (45.0-80.0) % Lymph % (Auto) (10.0-50.0) % [place] % (Auto) (2.0-14.0) % Eos % (Auto) (0.0-5.0) % Baso % (Auto) (0.0-2.0) % Neut # (Auto) (1.40-7.00) K/uL Lymph # (Auto) (0.50-3.50) K/uL [place] # (Auto) (0.00-1.00) K/uL Eos # (Auto) (0.00-0.50) K/uL Baso # (Auto) (0.00-0.20) K/uL Sodium (136-145) mmol/L Potassium (3.5-5.1) mmol/L Chloride (98-107) mmol/L Carbon Dioxide (21.0-32.0) mmol/L BUN (7-18) mg/dL Creatinine (0.51-1.17) mg/dL Est Cr Clr Drug Dosing mL/min Estimated GFR (MDRD) mL/min Glucose (74-106) mg/dL Hemoglobin A1c 5.5 (4.3-5.7) % Calcium (8.5-10.1) mg/dL Magnesium (1.8-2.4) mg/dL Total Bilirubin (0.2-1.0) mg/dL AST (15-37) U/L ALT (12-78) U/L Alkaline Phosphatase (46-116) IU/L Troponin I (0.000-0.056) ng/mL Total Protein (6.4-8.2) g/dL Albumin (3.4-5.0) g/dL Amylase 38 (25-115) U/L Lipase 105 (73-393) U/L Specimen Type Urine Color (YELLOW) Urine Appearance (CLEAR) Urine pH (5.0-9.0) Ur Specific [place] (1.005-1.030) Urine Protein (NEGATIVE) mg/dL Urine Glucose (UA) (NEGATIVE) mg/dL Urine Ketones (NEGATIVE) mg/dL Urine Occult Blood (NEGATIVE) Urine Nitrite (NEGATIVE) Urine Bilirubin (NEGATIVE) Urine Urobilinogen (0.2-1.0) E.U./dL Ur Leukocyte Esterase (NEGATIVE) Urine RBC /HPF Urine WBC /HPF Ur Epithelial Cells /LPF Urine Bacteria (NONE TO FEW) /HPF Med Orders - Current: Current Medications Amitriptyline HCl (Elavil) 12.5 mg PO BEDTIME YOGESH Docusate Sodium (Colace) 100 mg PO BEDTIME [facility] Last Admin: 03/14/19 23:53 Dose: Not Given Hydrochlorothiazide (Hydrochlorothiazide) 12.5 mg PO DAILY [facility] Last Admin: 03/15/19 07:30 Dose: 12.5 mg Irbesartan (Avapro) 150 mg PO BEDTIME YOGESH Lorazepam (Ativan) 1 mg PO Q6H PRN PRN Reason: Anxiety Last Admin: 03/15/19 07:31 Dose: 1 mg Ondansetron HCl (Zofran) 4 mg IVPUSH Q6H PRN PRN Reason: Nausea/Vomiting Last Admin: 03/15/19 10:25 Dose: 4 mg Sodium Chloride (Saline Flush) 10 ml FLUSH ASDIRECTED PRN PRN Reason: Keep Vein Open Last Admin: 03/15/19 10:25 Dose: 10 ml Sodium Chloride (Sodium Chloride) 1 gm PO QID [facility] Last Admin: 03/15/19 11:29 Dose: 1 gm Verapamil HCl (Calan Sr) 240 mg PO DAILY [facility] Last Admin: 03/15/19 07:31 Dose: 240 mg Discontinued Medications Magnesium Sulfate/Dextrose 1 (gm/ Premix) 100 mls @ 100 mls/hr IV ONETIME ONE Stop: 03/15/19 00:27 Last Admin: 03/15/19 00:09 Dose: 100 mls/hr Sodium Chloride (Sodium Chloride 3%) 500 mls @ 40 mls/hr IV ASDIRECTED [facility] Last Admin: 03/15/19 00:09 Dose: 40 mls/hr Magnesium Sulfate/Dextrose 1 (gm/ Premix) 100 mls @ 100 mls/hr IV ONETIME ONE Stop: 03/15/19 03:59 Last Admin: 03/15/19 04:46 Dose: 100 mls/hr Lorazepam (Ativan) 1 mg IVPUSH ONETIME ONE Stop: 03/14/19 23:29 Last Admin: 03/15/19 00:09 Dose: 1 mg Ondansetron HCl (Zofran) 4 mg IVPUSH ONETIME ONE Stop: 03/14/19 23:29 Last Admin: 03/15/19 00:09 Dose: 4 mg Pantoprazole Sodium (Protonix Iv) 40 mg IVPUSH ONETIME ONE Stop: 03/14/19 23:34 Last Admin: 03/15/19 00:10 Dose: 40 mg Potassium Chloride (Klor-Con 10) 20 meq PO ONETIME ONE Stop: 03/15/19 00:02 Last Admin: 03/15/19 00:10 Dose: 20 meq Potassium Chloride (Klor-Con 10) 20 meq PO ONETIME ONE Stop: 03/15/19 04:01 Last Admin: 03/15/19 04:46 Dose: 20 meq Sodium Chloride (Sodium Chloride) 1 gm PO ONETIME ONE Stop: 03/15/19 13:17 - Exam General: Alert, Oriented HEENT: Pupils Equal, Pupils Reactive, EOMI, Mucous Membr. Moist/[place] Neck: Supple Lungs: Clear to Auscultation, Normal Respiratory Effort Cardiovascular: Regular Rate, Regular Rhythm GI/Abdominal Exam: Normal Bowel Sounds, Soft, Non-Tender, No Distention (Female) Exam: Deferred Back Exam: Normal Inspection. No: CVA Tenderness (L), CVA Tenderness (R), Muscle Spasm, Paraspinal Tenderness, Vertebral Tenderness Extremities: Normal Inspection, Non-Tender, No Pedal Edema, Normal Capillary Refill Skin: Warm, Dry Neurological: No New Focal Deficit, Other Psy/Mental Status: Alert, Normal Affect - Problem List & Annotations (1) Hyponatremia SNOMED Code(s): 26655615 Code(s): E87.1 - HYPO-OSMOLALITY AND HYPONATREMIA Status: Chronic Priority: High Current Visit: Yes Annotation/Comment:: Exacerbation of hyponatremia. Level has improved to 126. Changed to PO NaCl tabs. Will recheck level at 1800 (2) Hypokalemia SNOMED Code(s): 39450678 Code(s): E87.6 - HYPOKALEMIA Status: Chronic Priority: Medium Current Visit: Yes Annotation/Comment:: Normal level today (3) Hypomagnesemia SNOMED Code(s): 347555329 Code(s): E83.42 - HYPOMAGNESEMIA Status: Chronic Priority: High Current Visit: Yes Annotation/Comment:: Normal level today. Increase supplement dose at time of discharge. (4) GERD (gastroesophageal reflux disease) SNOMED Code(s): 617901781 Code(s): K21.9 - GASTRO-ESOPHAGEAL REFLUX DISEASE WITHOUT ESOPHAGITIS Status: Chronic Priority: Low Current Visit: No Qualifiers: Esophagitis presence: esophagitis presence not specified Qualified Code(s) : K21.9 - Gastro-esophageal reflux disease without esophagitis Annotation/Comment:: Patient admits to poor eating habits and snacking before bed, exacerbating symptoms. Time spent encouraging patient to make dietary changes such as not eating 3 hours prior to bedtime and avoiding processed food/ common heartburn triggers. Patient is uncertain if she can make these changes. (5) Anxiety SNOMED Code(s): 03762623 Code(s): F41.9 - ANXIETY DISORDER, UNSPECIFIED Status: Chronic Priority: Medium Current Visit: Yes Annotation/Comment:: Colonoscopy cancelled. Anxiety improved with Ativan. Son notes that patient often presents to ER with complaints of not feeling well/dizzy when she is stressed and experiencing anxiety. He feels ER visit is related to the colonoscopy scheduled. - Problem List Review Problem List Initiated/Reviewed/Updated: Yes - My Orders Last 24 Hours: My Active Orders 03/14/19 23:28 Sodium Chloride 0.9% [Saline Flush] 10 ml FLUSH ASDIRECTED PRN Saline Lock Insert [OM.PC] Routine 03/14/19 23:34 Patient Status [ADT] Routine Oxygen Therapy [RC] .PRN Up ad Nani [RC] ASDIRECTED Vital Signs [RC] Q4HR Ondansetron [Zofran] 4 mg IVPUSH Q6H PRN Resuscitation Status Routine 03/14/19 23:35 Pulse Oximetry [RC] PRN 03/14/19 23:38 LORazepam [Ativan] 1 mg PO Q6H PRN 03/14/19 23:47 Docusate Sodium [Colace] 100 mg PO BEDTIME 03/14/19 Dinner Clear Liquid Diet [DIET] 03/15/19 08:00 Verapamil [Calan SR] 240 mg PO DAILY hydroCHLOROthiazide 12.5 mg PO DAILY 03/15/19 10:06 CULTURE URINE [RM] Routine 03/15/19 10:15 Sodium Chloride 1 gm PO QID 03/15/19 12:18 Abdomen 2V AP Flat Upright [CR] Routine 03/15/19 18:00 BASIC METABOLIC PANEL,BMP [CHEM] Timed 03/15/19 20:00 Amitriptyline [Elavil] 12.5 mg PO BEDTIME Irbesartan [Avapro] 150 mg PO BEDTIME - Assessment Assessment:: as above - Plan Plan:: as above. Patient would like to go home tonight if Na level continues to improve. Close follow up with primary provider to recheck levels would be advised.
[2019-03-15 17:50] LABS: CHLORIDE,CL 89 mmol/L (98-107); SODIUM,NA 125 mmol/L (136-145)
[2019-03-15] MEDS ORDERED: Potassium Chloride 20 MEQ Tab.ER PO ONE (19:01)
--- NOTE | 2019-03-15 19:13 | PCM.DCSUM1 ---
Discharge Summary - Hospital Course Brief History: Patient admitted for treatment of low K, Mg, and sodium. Presented with complaints of feeling weak, lightheaded, one episode emesis. Diagnosis: Stroke: No - Discharge Data Discharge Date: 03/15/19 Discharge Disposition: Home, Self-Care 01 Condition: Good - Discharge Diagnosis/Problem(s) (1) Hyponatremia SNOMED Code(s): 92826963 ICD Code: E87.1 - HYPO-OSMOLALITY AND HYPONATREMIA Status: Chronic Priority: High Current Visit: Yes Problem Details: Exacerbation of hyponatremia. Usual level per clinic records faxed to us is lower 130s. Was initially 123. Up to 126 this morning. Now 125 at 1800. Patient refuses to stay any longer and wants discharged home. Agrees to have sodium level rechecked tomorrow at clinic in [place]. Discharged with PO NaCl ordered. (2) Hypokalemia SNOMED Code(s): 21786180 ICD Code: E87.6 - HYPOKALEMIA Status: Chronic Priority: Medium Current Visit: Yes Problem Details: Normal level this morning. Now has returned to 130. (3) Hypomagnesemia SNOMED Code(s): 567240189 ICD Code: E83.42 - HYPOMAGNESEMIA Status: Chronic Priority: High Current Visit: Yes Problem Details: Normal level today. Increase supplement dose at time of discharge. (4) GERD (gastroesophageal reflux disease) SNOMED Code(s): 555324711 ICD Code: K21.9 - GASTRO-ESOPHAGEAL REFLUX DISEASE WITHOUT ESOPHAGITIS Status: Chronic Priority: Low Current Visit: No Problem Details: Patient admits to poor eating habits and snacking before bed, exacerbating symptoms. Time spent encouraging patient to make dietary changes such as not eating 3 hours prior to bedtime and avoiding processed food/common heartburn triggers. Patient is uncertain if she can make these changes. Qualifiers: Esophagitis presence: esophagitis presence not specified Qualified Code(s) : K21.9 - Gastro-esophageal reflux disease without esophagitis (5) Anxiety SNOMED Code(s): 04588356 ICD Code: F41.9 - ANXIETY DISORDER, UNSPECIFIED Status: Chronic Priority : Medium Current Visit: Yes Problem Details: Colonoscopy cancelled. Anxiety improved with Ativan. Son notes that patient often presents to ER with complaints of not feeling well/dizzy when she is stressed and experiencing anxiety. He feels ER visit is related to the colonoscopy scheduled. - Patient Summary/Data Hospital Course: Patient received supplemental Mg, saline, and K. Emesis resolved. Fatigue improved. Lightheadedness resolved. Morning labs showed improvement in all three levels. However recheck at 1800 revealed that both K and Na levels decreased again. Lab results discussed with patient. Recommended to patient that she stay another night so that she could continue to receive replacement therapy for potassium and sodium. Patient refused to stay any longer and was adamant that she wanted to go home. Risks of low Na and K discussed. Precautions extensively reviewed. Patient agrees to have levels rechecked tomorrow at local [facility] to make certain they are improving. She is aware that further intervention may be needed depending on lab results. Also recommended to have referral to Endocrinology given her persistent issues with these levels/chronically low Mg/K/Na. Patient knows to return to the ER if she has worsening problems. Additional K and NaCl doses given at time of discharge. - Patient Instructions Diet: Fluid Restriction (to liberally add salt to foods) Fluid Restriction: 1500 mL Activity: As Tolerated Showering/Bathing: May Shower Other/Special Instructions: Get your Magnesium, Sodium, and Potassium levels rechecked TOMORROW at the clinic. If they won't do it, return to the hospital desk for assistance. See if they are improving. If they are, continue current regimen and get them checked again on Friday. Discuss with your clinic getting a referral to have your colonoscopy performed here in [place] by May 18. It was been rescheduled for that date since you cannot make the one this week. you will receive new instructions in the mail in about 2 weeks for this. Call the hospital one week prior to the procedure to check in. You also need to vegetable picker digestive enzymes ([employer] food grocery store in [place] will have this) and take one before all main meals. Discuss with your clinic you anxiety and see if they want to put you on any additional therapy to help with the anxiety. Get a referral to Endocrinology to see if they can help figure out why you continue to have so many issues with low electrolytes. Continue to have your electrolyte levels checked every 4-8 weeks until things appear stable. Follow up as needed at the hospital if you have problems. - Discharge Plan *PRESCRIPTION DRUG MONITORING PROGRAM REVIEWED*: Not Applicable *COPY OF PRESCRIPTION DRUG MONITORING REPORT IN PATIENT RINA: Not Applicable Prescriptions/Med Rec: Magnesium Oxide [Magnesium] 500 mg PO BID #60 capsule Potassium Chloride [Klor-Con M10] 10 meq PO DAILY #30 tab.er.prt Sodium Chloride 1 gm PO TID #90 tablet Home Medications: Home Meds Amitriptyline [Elavil] 12.5 mg PO BEDTIME 12/23/13 [History] B Complex With Vitamin C [Super B Complex with C] 1 each PO DAILY 12/23/13 [ History] Irbesartan [Avapro] 150 mg PO BEDTIME 12/23/13 [History] Multivitamin [Multi-Vitamin Daily] 1 each PO DAILY 12/23/13 [History] Verapamil [Verelan] 240 mg PO DAILY 12/23/13 [History] hydroCHLOROthiazide [Hydrochlorothiazide] 12.5 mg PO DAILY 12/23/13 [History] Ranitidine [Zantac] 150 mg PO BEDTIME 10/19/16 [History] Calcium Carb/Mag Ox/Zinc Sulf [Owpffil-Viunmouto-Tpwj Tablet] 1 tab PO DAILY [History] Cranberry Fruit Extract [Cranberry] 1 tab PO DAILY 03/14/19 [History] Docusate Sodium [Stool Softener] 1 tab PO BEDTIME 03/14/19 [History] Lactobac Cmb #3/Fos/Pantethine [Probiotic & Acidophilus] 1 tab PO DAILY [History] Magnesium Oxide [Magnesium] 500 mg PO BID #60 capsule 03/15/19 [Rx] Potassium Chloride [Klor-Con M10] 10 meq PO DAILY #30 tab.er.prt 03/15/19 [Rx] Sodium Chloride 1 gm PO TID #90 tablet 03/15/19 [Rx] Patient Handouts: Hyponatremia, [id number], Hypokalemia, Potassium Content of Foods Forms: ED Department Discharge Referrals: Gordon Dinero MD [Primary Care Provider] - - Discharge Summary/Plan Comment DC Time >30 min.: No - Patient Data Vitals - Most Recent: Last Vital Signs Temp 36.9 C 03/15/19 16:00 Pulse 76 03/15/19 16:00 Resp 14 03/15/19 16:00 BP 139/60 03/15/19 16:00 Pulse Ox 100 08/19/19 16:00 Weight - Most Recent: 56.019 kg I&O - Last 24 hours: Intake & Output 03/15/19 03/15/19 03/15/19 06:59 14:59 22:59 Intake Total 784 2414 120 Output Total 1650 1300 Balance -866 1114 120 Lab Results - Last 24 hrs: Laboratory Results - last 24 hr 03/14/19 03/14/19 03/14/19 Range/Units 20:20 22:20 22:20 WBC 9.1 (4.0-10.2) K/uL RBC 4.34 (3.77-5.09) M/uL Hgb 13.4 (11.7-15.5) g/dL Hct 36.9 (34.0-46.0) % MCV 85.0 (84.0-98.0) fL MCH 30.9 (28.2-33.3) pg MCHC 36.3 H (31.7-36.0) g/dL RDW 12.1 (11.2-14.1) % Plt Count 195 (150-350) K/uL Neut % (Auto) 70.1 (45.0-80.0) % Lymph % (Auto) 20.8 (10.0-50.0) % [place] % (Auto) 7.9 (2.0-14.0) % Eos % (Auto) 1.0 (0.0-5.0) % Baso % (Auto) 0.2 (0.0-2.0) % Neut # (Auto) 6.35 (1.40-7.00) K/uL Lymph # (Auto) 1.88 (0.50-3.50) K/uL [place] # (Auto) 0.72 (0.00-1.00) K/uL Eos # (Auto) 0.09 (0.00-0.50) K/uL Baso # (Auto) 0.02 (0.00-0.20) K/uL Sodium 123 L* (136-145) mmol/L Potassium 3.0 L (3.5-5.1) mmol/L Chloride 87 L (98-107) mmol/L Carbon Dioxide 23.1 (21.0-32.0) mmol/L BUN 13 (7-18) mg/dL Creatinine 0.62 (0.51-1.17) mg/dL Est Cr Clr Drug Dosing 53.71 mL/min Estimated GFR (MDRD) > 60 mL/min Glucose 125 H (74-106) mg/dL Hemoglobin A1c (4.3-5.7) % Calcium 8.4 L (8.5-10.1) mg/dL Magnesium 1.5 L (1.8-2.4) mg/dL Total Bilirubin 0.7 (0.2-1.0) mg/dL AST 22 (15-37) U/L ALT 29 (12-78) U/L Alkaline Phosphatase 84 (46-116) IU/L Troponin I 0.000 (0.000-0.056) ng/mL Total Protein 7.2 (6.4-8.2) g/dL Albumin 3.8 (3.4-5.0) g/dL Amylase (25-115) U/L Lipase (73-393) U/L Specimen Type Urine Color (YELLOW) Urine Appearance (CLEAR) Urine pH (5.0-9.0) Ur Specific [place] (1.005-1.030) Urine Protein (NEGATIVE) mg/dL Urine Glucose (UA) (NEGATIVE) mg/dL Urine Ketones (NEGATIVE) mg/dL Urine Occult Blood (NEGATIVE) Urine Nitrite (NEGATIVE) Urine Bilirubin (NEGATIVE) Urine Urobilinogen (0.2-1.0) E.U./dL Ur Leukocyte Esterase (NEGATIVE) Urine RBC /HPF Urine WBC /HPF Ur Epithelial Cells /LPF Urine Bacteria (NONE TO FEW) /HPF 03/14/19 03/15/19 03/15/19 Range/Units 23:10 07:15 07:15 WBC 8.0 (4.0-10.2) K/uL RBC 4.61 (3.77-5.09) M/uL Hgb 14.2 (11.7-15.5) g/dL Hct 39.1 (34.0-46.0) % MCV 84.8 (84.0-98.0) fL MCH 30.8 (28.2-33.3) pg MCHC 36.3 H (31.7-36.0) g/dL RDW 12.1 (11.2-14.1) % Plt Count 217 (150-350) K/uL Neut % (Auto) 64.7 (45.0-80.0) % Lymph % (Auto) 23.5 (10.0-50.0) % [place] % (Auto) 10.1 (2.0-14.0) % Eos % (Auto) 1.4 (0.0-5.0) % Baso % (Auto) 0.3 (0.0-2.0) % Neut # (Auto) 5.16 (1.40-7.00) K/uL Lymph # (Auto) 1.87 (0.50-3.50) K/uL [place] # (Auto) 0.80 (0.00-1.00) K/uL Eos # (Auto) 0.11 (0.00-0.50) K/uL Baso # (Auto) 0.02 (0.00-0.20) K/uL Sodium 126 L (136-145) mmol/L Potassium 3.6 (3.5-5.1) mmol/L Chloride 92 L (98-107) mmol/L Carbon Dioxide 24.6 (21.0-32.0) mmol/L BUN 8 (7-18) mg/dL Creatinine 0.52 (0.51-1.17) mg/dL Est Cr Clr Drug Dosing 64.04 mL/min Estimated GFR (MDRD) > 60 mL/min Glucose 101 (74-106) mg/dL Hemoglobin A1c (4.3-5.7) % Calcium 8.2 L (8.5-10.1) mg/dL Magnesium 2.2 (1.8-2.4) mg/dL Total Bilirubin (0.2-1.0) mg/dL AST (15-37) U/L ALT (12-78) U/L Alkaline Phosphatase (46-116) IU/L Troponin I (0.000-0.056) ng/mL Total Protein (6.4-8.2) g/dL Albumin (3.4-5.0) g/dL Amylase (25-115) U/L Lipase (73-393) U/L Specimen Type Urinvoid Urine Color Yellow (YELLOW) Urine Appearance Slightly cloudy H (CLEAR) Urine pH 7.5 (5.0-9.0) Ur Specific [place] 1.015 (1.005-1.030) Urine Protein Negative (NEGATIVE) mg/dL Urine Glucose (UA) Negative (NEGATIVE) mg/dL Urine Ketones Negative (NEGATIVE) mg/dL Urine Occult Blood Trace-intact H (NEGATIVE) Urine Nitrite Positive H (NEGATIVE) Urine Bilirubin Negative (NEGATIVE) Urine Urobilinogen 0.2 (0.2-1.0) E.U./dL Ur Leukocyte Esterase Negative (NEGATIVE) Urine RBC 0-5 /HPF Urine WBC 0-5 /HPF Ur Epithelial Cells Not seen /LPF Urine Bacteria Many H (NONE TO FEW) /HPF 03/15/19 03/15/19 03/15/19 Range/Units 07:15 07:15 17:33 WBC (4.0-10.2) K/uL RBC (3.77-5.09) M/uL Hgb (11.7-15.5) g/dL Hct (34.0-46.0) % MCV (84.0-98.0) fL MCH (28.2-33.3) pg MCHC (31.7-36.0) g/dL RDW (11.2-14.1) % Plt Count (150-350) K/uL Neut % (Auto) (45.0-80.0) % Lymph % (Auto) (10.0-50.0) % [place] % (Auto) (2.0-14.0) % Eos % (Auto) (0.0-5.0) % Baso % (Auto) (0.0-2.0) % Neut # (Auto) (1.40-7.00) K/uL Lymph # (Auto) (0.50-3.50) K/uL [place] # (Auto) (0.00-1.00) K/uL Eos # (Auto) (0.00-0.50) K/uL Baso # (Auto) (0.00-0.20) K/uL Sodium 125 L (136-145) mmol/L Potassium 3.0 L (3.5-5.1) mmol/L Chloride 89 L (98-107) mmol/L Carbon Dioxide 25.7 (21.0-32.0) mmol/L BUN 8 (7-18) mg/dL Creatinine 0.56 (0.51-1.17) mg/dL Est Cr Clr Drug Dosing 59.47 mL/min Estimated GFR (MDRD) > 60 mL/min Glucose 120 H (74-106) mg/dL Hemoglobin A1c 5.5 (4.3-5.7) % Calcium 8.5 (8.5-10.1) mg/dL Magnesium (1.8-2.4) mg/dL Total Bilirubin (0.2-1.0) mg/dL AST (15-37) U/L ALT (12-78) U/L Alkaline Phosphatase (46-116) IU/L Troponin I (0.000-0.056) ng/mL Total Protein (6.4-8.2) g/dL Albumin (3.4-5.0) g/dL Amylase 38 (25-115) U/L Lipase 105 (73-393) U/L Specimen Type Urine Color (YELLOW) Urine Appearance (CLEAR) Urine pH (5.0-9.0) Ur Specific [place] (1.005-1.030) Urine Protein (NEGATIVE) mg/dL Urine Glucose (UA) (NEGATIVE) mg/dL Urine Ketones (NEGATIVE) mg/dL Urine Occult Blood (NEGATIVE) Urine Nitrite (NEGATIVE) Urine Bilirubin (NEGATIVE) Urine Urobilinogen (0.2-1.0) E.U./dL Ur Leukocyte Esterase (NEGATIVE) Urine RBC /HPF Urine WBC /HPF Ur Epithelial Cells /LPF Urine Bacteria (NONE TO FEW) /HPF Med Orders - Current: Current Medications Amitriptyline HCl (Elavil) 12.5 mg PO BEDTIME YOGESH Docusate Sodium (Colace) 100 mg PO BEDTIME YOGESH Last Admin: 03/14/19 23:53 Dose: Not Given Hydrochlorothiazide (Hydrochlorothiazide) 12.5 mg PO DAILY YOGESH Last Admin: 03/15/19 07:30 Dose: 12.5 mg Irbesartan (Avapro) 150 mg PO BEDTIME YOGESH Lorazepam (Ativan) 1 mg PO Q6H PRN PRN Reason: Anxiety Last Admin: 03/15/19 07:31 Dose: 1 mg Ondansetron HCl (Zofran) 4 mg IVPUSH Q6H PRN PRN Reason: Nausea/Vomiting Last Admin: 03/15/19 10:25 Dose: 4 mg Potassium Chloride (Klor-Con M20) 40 meq PO ONETIME ONE Stop: 03/15/19 19:02 Sodium Chloride (Saline Flush) 10 ml FLUSH ASDIRECTED PRN PRN Reason: Keep Vein Open Last Admin: 03/15/19 10:25 Dose: 10 ml Sodium Chloride (Sodium Chloride) 1 gm PO QID [facility] Last Admin: 03/15/19 16:43 Dose: 1 gm Sodium Chloride (Sodium Chloride) 2 gm PO ONETIME ONE Stop: 03/15/19 19:01 Verapamil HCl (Calan Sr) 240 mg PO DAILY [facility] Last Admin: 03/15/19 07:31 Dose: 240 mg Discontinued Medications Magnesium Sulfate/Dextrose 1 (gm/ Premix) 100 mls @ 100 mls/hr IV ONETIME ONE Stop: 03/15/19 00:27 Last Admin: 03/15/19 00:09 Dose: 100 mls/hr Sodium Chloride (Sodium Chloride 3%) 500 mls @ 40 mls/hr IV ASDIRECTED [facility] Last Admin: 03/15/19 00:09 Dose: 40 mls/hr Magnesium Sulfate/Dextrose 1 (gm/ Premix) 100 mls @ 100 mls/hr IV ONETIME ONE Stop: 03/15/19 03:59 Last Admin: 03/15/19 04:46 Dose: 100 mls/hr Lorazepam (Ativan) 1 mg IVPUSH ONETIME ONE Stop: 03/14/19 23:29 Last Admin: 03/15/19 00:09 Dose: 1 mg Ondansetron HCl (Zofran) 4 mg IVPUSH ONETIME ONE Stop: 03/14/19 23:29 Last Admin: 03/15/19 00:09 Dose: 4 mg Pantoprazole Sodium (Protonix Iv) 40 mg IVPUSH ONETIME ONE Stop: 03/14/19 23:34 Last Admin: 03/15/19 00:10 Dose: 40 mg Potassium Chloride (Klor-Con 10) 20 meq PO ONETIME ONE Stop: 03/15/19 00:02 Last Admin: 03/15/19 00:10 Dose: 20 meq Potassium Chloride (Klor-Con 10) 20 meq PO ONETIME ONE Stop: 03/15/19 04:01 Last Admin: 03/15/19 04:46 Dose: 20 meq Sodium Chloride (Sodium Chloride) 1 gm PO ONETIME ONE Stop: 03/15/19 13:17 Last Admin: 03/15/19 14:08 Dose: 1 gm - Exam General: Reports: Alert, Oriented, Cooperative, No Acute Distress HEENT: Reports: Pupils Equal, Pupils Reactive, EOMI, Mucous Membr. Moist/[place] Neck: Reports: Supple Lungs: Reports: Clear to Auscultation, Normal Respiratory Effort Cardiovascular: Reports: Regular Rate, Regular Rhythm, Murmurs GI/Abdominal Exam: Soft, Non-Tender, Other (bowel sounds present). No: No Distention (Female) Exam: Deferred Rectal (Female) Exam: Deferred Back Exam: Reports: Normal Inspection Extremities: Normal Inspection, Non-Tender, Normal Capillary Refill Skin: Reports: Warm, Dry, Intact Neurological: Reports: No New Focal Deficit Psy/Mental Status: Reports: Alert, Normal Affect, Normal Mood
[2019-03-15 19:22] VITALS: BP 156/63; PULSE 72
[2019-03-15] MEDS ORDERED: Irbesartan 150 MG Tab PO SCH (20:00)
[2019-03-15] MEDS ORDERED: Amitriptyline 25 MG Tab PO SCH (20:00)
== END 2019-03-15 19:55 | disposition home or self-care (01) ==
LOC: LL.ED 21:56 → LL.MS 23:16 → UNDOADMOB 23:16
PROVIDERS: ADMIT Emergency Medicine; ATTEND Emergency Medicine
DX: E87.1 Hypo-osmolality and hyponatremia (principal); E87.6 Hypokalemia; E83.42 Hypomagnesemia; K21.9 Gastro-esophageal reflux disease without esophagitis; F41.9 Anxiety disorder, unspecified; I10 Essential (primary) hypertension; Z79.899 Other long term (current) drug therapy; Z88.5 Allergy status to narcotic agent; Z88.8 Allergy status to other drugs, medicaments and biological substances; Z88.2 Allergy status to sulfonamides
CPT/HCPCS: 36000; 36415; 74019; 80048; 80053; 81001; 82150; 83036; 83690; 83735; 84484; 85025; 87086; 87088; 87186; 96361; 96365; 96366; 96375; 96376; 99217; 99218; 99284; A9270; C9113; G0378; J2060; J2405; J3475; J7040

== ENCOUNTER 2020-03-19 15:43 | Emergency (ER) | payer MEDICARE, OTHER ==
[2020-03-19] MEDS ORDERED: Ondansetron 4 MG/2 ML SDV IVPUSH ONE (15:48)
[2020-03-19] MEDS ORDERED: Lactated Ringers 1,000 ML IV ONE (15:48)
[2020-03-19] MEDS ORDERED: Sodium Chloride 0.9% 10 ML Syringe FLUSH PRN (15:48)
--- NOTE | 2020-03-19 15:48 | EDM.PDOC ---
ED HPI GENERAL MEDICAL PROBLEM - General Chief Complaint: General Stated Complaint: dizzy, weak, diarrhea Time Seen by Provider: 03/19/20 15:45 Source of Information: Reports: Patient, Old Records ([facility] chart/EMR), Other ([facility] EMR) History Limitations: Reports: No Limitations - History of Present Illness INITIAL COMMENTS - FREE TEXT/NARRATIVE: The patient was brought to the emergency room via private automobile by a friend for evaluation of exacerbation of her chronic diarrhea and nausea with patient having about 6-8 bowel movements per day for the last 7-8 days. She has had similar type symptoms, including intermittent vertigo and dizziness during the last 3 months with no known exposure to infection, food poisoning, etc.. Her stools have been somewhat black secondary to Pepto-Bismol with no improvement with this medication. Patient did take 500 mg of Tylenol at 8:30 AM this morning for her chronic left knee pain. She is also had some problems with some bilateral 6/10 frontal headaches and sinus pressure secondary to her allergic rhinitis recently. No recent history of abdominal pain, heartburn, emesis, melena, gross hematochezia, or any food intolerance, including fatty foods, etc.. She denies any gross hematuria, colic, or other UTI symptoms. The patient also denies any recent fever, cough, wheezing, dyspnea, etc.. The p atient denies any chest pain/pressure, heart flutter, dizziness, orthostasis, orthopnea, diaphoresis, paresthesias, recent decreased exercise tolerance, or any other anginal-type symptoms. She denies any abdominal pain at this time. Onset: Gradual, Other (As above) Duration: Getting Worse, Intermittent Location: Reports: Head (Sinus headache), Lower Extremity, Right (Stable chronic right knee pain). Denies: Neck, Chest, Abdomen, Back, Pelvis, Upper Extremity, Left, Upper Extremity, Right, Lower Extremity, Left, Radiates to Quality: Reports: Pressure, Same as Previous Episode Severity: Moderate Improves with: Reports: None Worsens with: Reports: None Context: Reports: Other (As above). Denies: Sick Contact, Trauma Associated Symptoms: Reports: Headaches, Loss of Appetite. Denies: Confusion, Chest Pain, Cough, Diaphoresis, Fever/Chills Treatments [employer]: Reports: Other Medication(s) (As above) - Related Data Allergies Allergy/AdvReac Type Severity Reaction Status Date / Time morphine Allergy Hallucinati Verified 03/19/20 16:44 ons NSAIDS (Non-Steroidal Allergy Diarrhea Verified 03/19/20 16:44 Anti-Inflamma piroxicam [From Feldene] Allergy Difficulty Verified 03/19/20 16:44 Breathing Sulfa (Sulfonamide Allergy Abdominal Verified 03/19/20 16:44 Antibiotics) Pain tolmetin sodium Allergy Abdominal Verified 03/19/20 16:44 [From Tolectin] Pain Home Meds: Home Meds Amitriptyline [Elavil] 12.5 mg PO BEDTIME 12/23/13 [History] B Complex With Vitamin C [Super B Complex with C] 1 each PO DAILY 12/23/13 [History] Multivitamin [Multi-Vitamin Daily] 1 each PO DAILY 12/23/13 [History] Verapamil [Verelan] 240 mg PO DAILY 12/23/13 [History] Lactobacillus 3/Fos/Pantethine [Probiotic & Acidophilus] 1 tab PO DAILY 03/14/19 [History] Cholecalciferol (Vitamin D3) [Vitamin D3] 1,000 unit PO DAILY 03/19/20 [History] Irbesartan [Avapro] 150 mg PO DAILY 03/19/20 [History] Magnesium Oxide 250 mg PO DAILY #1 tablet 03/19/20 [Rx] Meclizine HCl 25 mg PO QID PRN #30 tablet 03/19/20 [Rx] Pantoprazole Sodium [Protonix] 40 mg PO DAILY 03/19/20 [History] carvediloL [Carvedilol] 6.25 mg PO DAILY 03/19/20 [History] Past Medical History HEENT History: Reports: Allergic Rhinitis, Cataract, Impaired Vision, Sinusitis, Other (See Below). Denies: Glaucoma, Hard of Hearing, Macular Degeneration, Otitis Media Other HEENT History: Patient wears glasses. History of allergic rhinitis/sinusitis. 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 Cardiovascular History: Reports: Heart Murmur, High Cholesterol, Hypertension, Other (See Below). Denies: Afib, Aneurysm, Arrhythmia, Blood Clots/VTE/DVT, CAD, Cardiomyopathy, ME, PTCA, PVD, Syncope Other Cardiovascular History: Cardiomegaly by chest x-ray. Moderate aortic valve insufficiency with additional mitral valve insufficiency by echocardiogram. Respiratory History: Reports: COPD, Intubation, Previous, Pneumonia, Recurrent, Other (See Below). Denies: Asthma, Intubation, Difficult, Pneumothorax, Sleep Apnea, TB Other Respiratory History: COPD by chest x-ray with no current medical therapy. Childhood asthma with frequent pneumonia as a child. Gastrointestinal History: Reports: Cholelithiasis, Chronic Diarrhea, Colon Polyp, Diverticulosis, Gastritis, GERD, Hiatal Hernia, Other (See Below). Denies: Celiac Disease, Chronic Constipation, Fecal Incontinence, Inflammatory Bowel Disease, Irritable Bowel Syndrome, Jaundice, Pancreatitis, PUD Other Gastrointestinal History: Esophagitis by EGD. Genitourinary History: Reports: UTI, Recurrent, Other (See Below). Denies: Acute Renal Failure, Chronic Renal Insuffiency, Renal Calculus, Retention, Urinary, STD, Urinary Incontinence [employer] History: Reports: , Prolapsed Uterus, Spontaneous . Denies: Dysfunctional Uterine Bleeding, Endometriosis, Fibroids : 2 Para: 1 LMP (Approximate): Other (See Below) Other [employer] History: Surgical menopause secondary to prolapsed bladder/uterus as below. 1 elective SAB during first trimester. Otherwise, full term without complications during pregnancies or deliveries. Note positive BRCA gene. Musculoskeletal History: Reports: Arthritis, Back Pain, Chronic, Fibromyalgia, Osteoarthritis, Osteoporosis, Other (See Below). Denies: Fracture, Gout, Neck Pain, Chronic, RA, SLE Other Musculoskeletal History: Severe scoliosis. Neurological History: Reports: Headaches, Chronic, Migraines, TIA, Vertigo, Other (See Below). Denies: Cerebral Aneurysms, CVA, Head Trauma, MS, Seizure Other Neuro History: TIA with secondary expressive a aphasia on 03/21/2016 with work-up as below. Psychiatric History: Reports: Anxiety, Depression Endocrine/Metabolic History: Reports: Hypokalemia, Hypomagnesemia, Vitamin D Deficiency, Other (See Below) Other Endocrine/Metabolic History: Hyponatremia. Hematologic History: Reports: None. Denies: Anemia, Blood Transfusion(s), Other (See Below) Immunologic History: Reports: None. Denies: AIDS, HIV, SLE Oncologic (Cancer) History: Reports: None. Denies: Basal Cell Carcinoma, Breast, Cervix, Colon, Hodgkin's Lymphoma, Leukemia, Lymphoma, Metastatic, Non- Hodgkin's Lymphoma, Ovarian, Uterine (And I have you not having any abnormal Pap smears no cancer skin cancers leukemia female cancers Lycra) Dermatologic History: Reports: Eczema, Other (See Below). Denies: Psoriasis Other Dermatologic History: Eczema as a child. - Infectious Disease History Infectious Disease History: Reports: Chicken Pox, Measles, Mumps, Rubella. Denies: C-Difficile, Meningitis, Mononucleosis, MRSA, Pertussis (Whooping Cough), Rheumatic Fever, Scarlet Fever, Shingles, TB, VRE - Past Surgical History Head Surgeries/Procedures: Reports: None HEENT Surgical History: Reports: Adenoidectomy, Cataract Surgery, Eye Surgery, Laser Surgery, Oral Surgery, Tonsillectomy, Other (See Below). Denies: LASIK, Myringotomy w Tube(s), Naso-Sinus Surgery Other HEENT Surgeries/Procedures: Tonsillectomy and adenoidectomy as a child. Laser treatment of her right eye in July 2016 and 05/18/2018. Right cataract extraction in 2007. [place] teeth extraction x2 at age 33 with additional multiple teeth extractions. Cardiovascular Surgical History: Reports: None. Denies: Varicose Respiratory Surgical History: Reports: None. Denies: Thoracentesis GI Surgical History: Reports: Appendectomy, Cholecystectomy, Colonoscopy, EGD, Polypectomy, Other (See Below). Denies: Hernia, Abdominal, Hernia, Inguinal, Hernia Repair/Other Other GI Surgeries/Procedures: EGD on 11/22/2014. Colonoscopy on 11/22/2014 and 09/03/2011. Laparoscopic cholecystectomy at age 61. Female Surgical History: Reports: D&C, Dilitation & Evacuation, Hysterectomy, Tubal Ligation, Other (See Below). Denies: Section, Salpingo- Oophorectomy Other Female Surgeries/Procedures: Note elective SAB as above. Partial hysterectomy with concomitant bladder suspension at age 61. Previous tubal ligation and unknown age. Endocrine Surgical History: Reports: None. Denies: Thyroid Biopsy Neurological Surgical History: Reports: Discectomy, Lumbar Spine. Denies: C- Spine, Intracranial, Laminectomy, Sacral Spine, Scoliosis, Spinal Fusion, Thoracic Spine, Vertebroplasty Other Neurological Surgeries/Procedures: Discectomy of the lumbar region in November 2000. Musculoskeletal Surgical History: Reports: None. Denies: Arthroscopic Procedure, Carpal Tunnel, Ganglion Cyst, Joint Replacement, Knee Replacement, ORIF, Shoulder Surgery Oncologic Surgical History: Reports: None Dermatological Surgical History: Reports: None - Past Imaging History Past Imaging History: Reports: Cardiac Echo (Last echocardiogram on 03/16/2019 with ejection fraction of 60-65% with otherwise findings as above. Previous evaluations on 12/24/2017 and 03/23/2016.), CAT Scan (CT a of the head and neck on 03/22/2016. CT of the head on 03/10/2014. CT of the abdomen and pelvis on 05/28/2006. CT myelogram of the back on 11/28/2000.), DEXA Scan (Last on 11/07/2015 with previous evaluation on 10/19/2013.), Mammogram (Last mammogram per our records on 04/22/2019.), MRA (Brain on 03/22/2016), Ultrasound (Pelvic ultrasound on 01/20/2008) Social & Family History - Family History Cardiac: Reports: CAD, Heart Failure, Other (See Below) Other Cardiac Family History: Father with CHF. Parents with coronary artery disease. Respiratory: Reports: COPD, Other (See Below) Other Respiratory Family Hisory: Father with COPD. GI: Reports: Colon Polyps, Other (See Below) Other GI Family History: Paternal uncle with colon cancer as below. Oncologic: Reports: Colon, Ovarian, Pancreatic, Other (See Below) Other Oncologic Family History: Paternal uncle with colon cancer. Brother with prostate cancer in his 60s. Sister with ovarian cancer at age 66. - Tobacco Use Smoking Status *Q: Never Smoker Tobacco Use Within Last Twelve Months: No Used Tobacco, but Quit: No Smoking Cessation Information Provided To Patient: No Second Hand Smoke Exposure: No - Caffeine Use Caffeine Use: Reports: None. Denies: Coffee, Energy Drinks, Soda, Tea - Alcohol Use Alcohol Use History: Yes Days Per Week of Alcohol Use: 0 Number of Drinks Per Day: 1 Number of Drinks Per Day Comment: 1 mixed drink per year. No previous DWIs, pro blems with alcohol abuse, etc. 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 ED EXAM, GENERAL - Physical Exam Exam: See Below Exam Limited By: No Limitations General Appearance: Alert, WD/WN, No Apparent Distress, Anxious (Mild to moderate) Eye Exam: Bilateral Eye: EOMI, Normal Inspection (No nystagmus although vertigo with head movement. Patient is wearing glasses.), PERRL Ears: Normal External Exam, Normal Canal, Hearing Grossly Normal, Normal TMs Nose: Normal Inspection, Normal Mucosa, No Blood Throat/Mouth: Normal Inspection, Normal Lips, Normal Teeth, Normal Gums, Normal Oropharynx, Normal Voice, No Airway Compromise. No: Dysphagia, Perioral Cyanosis Head: Atraumatic, Normocephalic. No: Facial Swelling, Facial Tenderness, Sinus Tenderness Neck: Supple, Non-Tender, Carotid Bruit (Mild bilateral carotid bruits versus transmitted heart sounds). No: Limited Range of Motion, Lymphadenopathy (L), Lymphadenopathy (R), Thyromegaly Respiratory/Chest: No Respiratory Distress, Lungs Clear, Normal Breath Sounds, No Accessory Muscle Use, Chest Non-Tender. No: Pleural Rub, Retractions Cardiovascular: Normal Peripheral Pulses, Regular Rate, Rhythm, No Edema, No Gallop, No JVD, No Murmur, No Rub, Systolic Murmur (2/6 DEEPALI of the aortic and mitral valves ). No: Gallop/S3, Gallop/S4, Friction Rub Peripheral Pulses: 2+: Radial (L), Radial (R), Dorsalis Pedis (L), Dorsalis Pedis (R) GI/Abdominal: Normal Bowel Sounds, Soft, Non-Tender, No Organomegaly, No Distention, No Abnormal Bruit, No Mass. No: Guarding (Female) Exam: Deferred Rectal (Female) Exam: Deferred Back Exam: Full Range of Motion, Other (Mild to moderate scoliosis). No: CVA Tenderness (L), CVA Tenderness (R), Muscle Spasm, Paraspinal Tenderness, Vertebral Tenderness Extremities: Normal Inspection, Normal Range of Motion, Non-Tender, No Pedal Edema, Normal Capillary Refill. No: Joint Swelling, Riaz's Sign Neurological: Alert, Oriented, CN II-XII Intact, Normal Cognition, Normal Gait, No Motor/Sensory Deficits Psychiatric: Anxious (Mild to moderate), Depressed Mood (Mild) Skin Exam: Warm, Dry, Intact, Normal Color, No Rash. No: Diaphoretic, Woun d/Incision Lymphatic: No Adenopathy Course - Vital Signs Last Recorded V/S: Last Vital Signs Temp 36.9 C 03/19/20 16:00 Pulse 65 03/19/20 17:47 Resp 18 03/19/20 17:47 BP 135/64 03/19/20 17:47 Pulse Ox 98 03/19/20 17:47 Vital Signs - 24 hr 03/19/20 03/19/20 16:00 17:47 Temperature [ 36.9 C Temporal] Pulse, 66 65 Peripheral [ Pulse Oximetry] Respiratory 18 18 Rate Blood Pressure 149/71 H 135/64 [Right Upper Arm] O2 Sat by Pulse 99 98 Oximetry - Orders/Labs/Meds Orders: Active Orders 24 hr Category Date Time Status Abdomen Series w Chest 1V [CR] Stat Exams 03/19/20 15:49 Taken Obtain Past Medical Record [OM.PC] Urgent Oth 03/19/20 15:49 Active Peripheral IV Insertion Adult [OM.PC] Stat Oth 03/19/20 15:49 Ordered Resuscitation Status Stat Resus Stat 03/19/20 15:48 Ordered Labs: Laboratory Tests 03/19/20 03/19/20 03/19/20 Range/Units 16:25 16:25 16:25 WBC 8.3 (4.0-10.2) K/uL RBC 4.44 (3.77-5.09) M/uL Hgb 13.4 (11.7-15.5) g/dL Hct 39.6 (34.0-46.0) % MCV 89.2 D (84.0-98.0) fL MCH 30.2 (28.2-33.3) pg MCHC 33.8 (31.7-36.0) g/dL RDW 13.2 (11.2-14.1) % Plt Count 248 (150-350) K/uL Neut % (Auto) 59.3 (45.0-80.0) % Lymph % (Auto) 26.5 (10.0-50.0) % [place] % (Auto) 11.2 (2.0-14.0) % Eos % (Auto) 2.8 (0.0-5.0) % Baso % (Auto) 0.2 (0.0-2.0) % Neut # (Auto) 4.92 (1.40-7.00) K/uL Lymph # (Auto) 2.20 (0.50-3.50) K/uL [place] # (Auto) 0.93 (0.00-1.00) K/uL Eos # (Auto) 0.23 (0.00-0.50) K/uL Baso # (Auto) 0.02 (0.00-0.20) K/uL PT 10.9 (9.5-12.0) SEC INR 1.1 APTT 25.9 (24.5-32.8) SEC Sodium (136-145) mmol/L Potassium (3.5-5.1) mmol/L Chloride (98-107) mmol/L Carbon Dioxide (21.0-32.0) mmol/L BUN (7-18) mg/dL Creatinine (0.51-1.17) mg/dL Est Cr Clr Drug Dosing Estimated GFR (MDRD) mL/min Glucose (74-106) mg/dL Lactic Acid (0.4-2.0) mmol/L Uric Acid (2.6-7.2) mg/dL Calcium (8.5-10.1) mg/dL Magnesium (1.8-2.4) mg/dL Total Bilirubin (0.2-1.0) mg/dL AST (15-37) U/L ALT (12-78) U/L Alkaline Phosphatase (46-116) IU/L Total Protein (6.4-8.2) g/dL Albumin (3.4-5.0) g/dL Amylase 45 (25-115) U/L Lipase (73-393) U/L 03/19/20 03/19/20 Range/Units 16:25 16:25 WBC (4.0-10.2) K/uL RBC (3.77-5.09) M/uL Hgb (11.7-15.5) g/dL Hct (34.0-46.0) % MCV (84.0-98.0) fL MCH (28.2-33.3) pg MCHC (31.7-36.0) g/dL RDW (11.2-14.1) % Plt Count (150-350) K/uL Neut % (Auto) (45.0-80.0) % Lymph % (Auto) (10.0-50.0) % [place] % (Auto) (2.0-14.0) % Eos % (Auto) (0.0-5.0) % Baso % (Auto) (0.0-2.0) % Neut # (Auto) (1.40-7.00) K/uL Lymph # (Auto) (0.50-3.50) K/uL [place] # (Auto) (0.00-1.00) K/uL Eos # (Auto) (0.00-0.50) K/uL Baso # (Auto) (0.00-0.20) K/uL PT (9.5-12.0) SEC INR APTT (24.5-32.8) SEC Sodium 138 D (136-145) mmol/L Potassium 3.7 (3.5-5.1) mmol/L Chloride 101 D (98-107) mmol/L Carbon Dioxide 25.5 (21.0-32.0) mmol/L BUN 12 (7-18) mg/dL Creatinine 0.78 (0.51-1.17) mg/dL Est Cr Clr Drug Dosing TNP Estimated GFR (MDRD) > 60 mL/min Glucose 105 (74-106) mg/dL Lactic Acid 0.7 (0.4-2.0) mmol/L Uric Acid 5.2 (2.6-7.2) mg/dL Calcium 8.9 (8.5-10.1) mg/dL Magnesium 2.3 (1.8-2.4) mg/dL Total Bilirubin 0.5 (0.2-1.0) mg/dL AST 23 (15-37) U/L ALT 37 (12-78) U/L Alkaline Phosphatase 82 (46-116) IU/L Total Protein 7.4 (6.4-8.2) g/dL Albumin 4.0 (3.4-5.0) g/dL Amylase (25-115) U/L Lipase 144 (73-393) U/L Meds: Medications Discontinued Medications Generic Name Dose Route Start Last Admin Trade Name Freq PRN Reason Stop Dose Admin Lactated Ringer's 1,000 mls @ 999 mls/hr 03/19/20 15:48 03/19/20 16:45 Ringers, Lactated IV 03/19/20 16:48 999 mls/hr .BOLUS ONE Administration Methylprednisolone Acetate 80 mg 03/19/20 17:22 03/19/20 17:48 Depo-Medrol IM 03/19/20 17:23 80 mg ONETIME ONE Administration Ondansetron HCl 4 mg 03/19/20 15:48 03/19/20 16:45 Zofran IVPUSH 03/19/20 15:49 4 mg ONETIME ONE Administration Sodium Chloride 10 ml 03/19/20 15:48 03/19/20 16:46 Saline Flush FLUSH 10 ml ASDIRECTED PRN Administration Keep Vein Open - Radiology Interpretation Free Text/Narrative:: Acute abdominal x-ray shows evidence of mild to moderate pulmonary obstructive disease with no pneumothorax or pulmonary infiltrates. Moderate cardiomegaly with no evidence of CHF. Note occasional fluid levels, however no evidence of ileus, obstruction, free air, etc. Note status post cholecystectomy with moderate osteoarthritic and osteoporotic changes in the thoracic spine including severe scoliosis in the lumbar region. Departure - Departure Time of Disposition: 18:10 Disposition: Home, Self-Care 01 Condition: Good Clinical Impression: Vertigo, HTN, Benign hypertension, Mixed anxiety depressive disorder Allergic rhinitis Qualifiers: Allergic rhinitis trigger: pollen Allergic rhinitis seasonality: seasonal Qualified Code(s): J30.1 - Allergic rhinitis due to pollen GERD (gastroesophageal reflux disease) Qualifiers: Esophagitis presence: esophagitis presence not specified Qualified Code(s): K21.9 - Gastro-esophageal reflux disease without esophagitis Diarrhea Qualifiers: Diarrhea type: unspecified type Qualified Code(s): R19.7 - Diarrhea, unspecified Osteoarthritis Qualifiers: Osteoarthritis location: multiple joints Osteoarthritis type: primary Qualified Code(s): M89.49 - Other hypertrophic osteoarthropathy, multiple sites - Discharge Information *PRESCRIPTION DRUG MONITORING PROGRAM REVIEWED*: Not Applicable *COPY OF PRESCRIPTION DRUG MONITORING REPORT IN PATIENT RINA: Not Applicable Prescriptions: Magnesium Oxide 250 mg PO DAILY #1 tablet Meclizine HCl 25 mg PO QID PRN #30 tablet PRN Reason: Dizziness Instructions: Labyrinthitis, [id number] Referrals: PCP,Unknown [Primary Care Provider] - Forms: ED Department Discharge Additional Instructions: 1. Followup with your regular provider in 10-14 days as directed for reevaluation and recommended repeat CBC, basic metabolic panel, and magnesium level. Bring these discharge instructions with you to that visit. 2. Recommend collection of stool specimens for culture and sensitivity and ova and parasites at follow-up, if diarrhea does not improve after decreasing your magnesium supplement. 3. Jay Em diet including encouragement of oral fluids such as sports drinks, etc. for 24-48 hours as directed. Advance to heart healthy, diverticulosis regular diet as tolerated thereafter. 4. Sedation precautions, dry mouth, etc. with meclizine as discussed with this to be use with discretion 5. Immediately after this visit verify that your cellular telephone's voicemail has been activated and is empty. Also verify that your home telephone's answering machine is operating properly and has space to receive messages. Note that it is sometimes necessary for us to be able to contact you at a later date to discuss your medical care. 6. Please remember that we are ALWAYS here for you and want to answer any questions you may have. Feel free to call the hospital any time and we call you back CHELE. Sepsis Event Note (ED) - Focused Exam Vital Signs: Vital Signs Temp Pulse Resp BP Pulse Ox 03/19/20 17:47 65 18 135/64 98 03/19/20 16:00 36.9 C 66 18 149/71 H 99 - Problem List & Annotations (1) Diarrhea SNOMED Code(s): 75316850 Code(s): R19.7 - DIARRHEA, UNSPECIFIED Status: Acute Priority: High Onset Date: 03/19/20 Annotation/Comment:: Her magnesium oxide will be decreased at this time secondary to her chronic diarrhea with normal magnesium level today. Close follow-up with her regular provider with consideration of stool culture and sensitivity and ova and parasite evaluation as per discharge instructions. She may also benefit from decrease of her Protonix and/or changed to Pepcid. Dietary measures for now. 1 L LR given in the emergency room with previous history of multiple electrolyte imbalances. Qualifiers: Diarrhea type: unspecified type Qualified Code(s): R19.7 - Diarrhea, unspecified (2) Allergic rhinitis SNOMED Code(s): 68895649 Code(s): J30.9 - ALLERGIC RHINITIS, UNSPECIFIED Status: Chronic Priority: Medium Annotation/Comment:: Allergic rhinitis and allergic sinusitis with secondary headaches. IM Depo-Medrol given in the emergency room. Qualifiers: Allergic rhinitis trigger: pollen Allergic rhinitis seasonality: seasonal Qualified Code(s): J30.1 - Allergic rhinitis due to pollen (3) Vertigo SNOMED Code(s): 830237155 Code(s): R42 - DIZZINESS AND GIDDINESS Status: Chronic Priority: High Annotation/Comment:: IM Depo-Medrol given. PRN meclizine with discretion with precautions given. (4) GERD (gastroesophageal reflux disease) SNOMED Code(s): 593590916 Code(s): K21.9 - GASTRO-ESOPHAGEAL REFLUX DISEASE WITHOUT ESOPHAGITIS Status: Chronic Priority: Medium Annotation/Comment:: Overall stable by history and nonproblematic at this time. Consider changing medications as above secondary to her chronic diarrhea. Qualifiers: Esophagitis presence: esophagitis presence not specified Qualified Code(s): K21.9 - Gastro-esophageal reflux disease without esophagitis (5) HTN, Benign hypertension SNOMED Code(s): 71825211 Code(s): I10 - ESSENTIAL (PRIMARY) HYPERTENSION Status: Chronic Priority: Medium Annotation/Comment:: Stable in the emergency room. Continue to observe closely by her regular provider. (6) Mixed anxiety depressive disorder SNOMED Code(s): 679000321 Code(s): F41.8 - OTHER SPECIFIED ANXIETY DISORDERS Status: Chronic Priority: Medium Annotation/Comment:: Stable by history (7) Osteoarthritis SNOMED Code(s): 049811917 Code(s): M19.90 - UNSPECIFIED OSTEOARTHRITIS, UNSPECIFIED SITE Status: Chronic Priority: Medium Annotation/Comment:: Stable by history including her chronic right knee pain. Note severe scoliosis history. Qualifiers: Osteoarthritis location: multiple joints Osteoarthritis type: primary Qualified Code(s): M89.49 - Other hypertrophic osteoarthropathy, multiple sites - Problem List Review Problem List Initiated/Reviewed/Updated: Yes - My Orders Last 24 Hours: My Active Orders 03/19/20 15:48 Resuscitation Status Stat 03/19/20 15:49 Abdomen Series w Chest 1V [CR] Stat Obtain Past Medical Record [OM.PC] Urgent Peripheral IV Insertion Adult [OM.PC] Stat - Assessment/Plan Last 24 Hours: My Active Orders 03/19/20 15:48 Resuscitation Status Stat 03/19/20 15:49 Abdomen Series w Chest 1V [CR] Stat Obtain Past Medical Record [OM.PC] Urgent Peripheral IV Insertion Adult [OM.PC] Stat Assessment:: As above Plan: As above. Extensive precautions were given to the patient, who is in agreement with the treatment plan. See Patient Instructions for further treatment and plan.
[2020-03-19 16:46] LABS: CHLORIDE,CL 101 mmol/L (98-107); SODIUM,NA 138 mmol/L (136-145)
[2020-03-19 16:47] LABS: PTT,PARTIAL THROMBOPLSTIN TIME 25.9 SEC (24.5-32.8)
[2020-03-19] MEDS ORDERED: methylPREDNISolone Acetate 80 MG/ML SDV IM ONE (17:22)
[2020-03-19 17:48] VITALS: BP 135/64; PULSE 65
== END 2020-03-19 18:10 | disposition home or self-care (01) ==
LOC: SUPCPDRO 15:43 → LL.ED 15:43
DX: K21.9 Gastro-esophageal reflux disease without esophagitis (principal); F41.8 Other specified anxiety disorders; I10 Essential (primary) hypertension; J30.1 Allergic rhinitis due to pollen; M89.49 Other hypertrophic osteoarthropathy, multiple sites; R19.7 Diarrhea, unspecified; J44.9 Chronic obstructive pulmonary disease, unspecified; M41.9 Scoliosis, unspecified; Z90.49 Acquired absence of other specified parts of digestive tract; Z88.5 Allergy status to narcotic agent; Z88.6 Allergy status to analgesic agent; Z88.2 Allergy status to sulfonamides; Z79.899 Other long term (current) drug therapy
CPT/HCPCS: 36415; 74022; 80053; 82150; 83605; 83690; 83735; 84550; 85025; 85610; 85730; 96361; 96372; 96374; 99284; J1040; J2405; J7120

== ENCOUNTER 2020-11-18 10:12 | Emergency (ER) | payer MEDICARE, OTHER ==
[2020-11-18] MEDS ORDERED: Famotidine 20 MG/2 ML SDV IVPUSH ONE (10:16)
[2020-11-18] MEDS ORDERED: Ondansetron 4 MG/2 ML SDV IVPUSH ONE (10:16)
[2020-11-18] MEDS ORDERED: Sodium Chloride 0.9% 10 ML Syringe FLUSH PRN (10:16)
[2020-11-18] MEDS ORDERED: Pantoprazole 40 MG Vial IVPUSH ONE (10:16)
[2020-11-18] MEDS ORDERED: Lactated Ringers 1,000 ML IV ONE (10:16)
--- NOTE | 2020-11-18 10:26 | EDM.PDOC ---
ED HPI GENERAL MEDICAL PROBLEM - General Chief Complaint: Headache Stated Complaint: Possible Electrolyte Imbalence Time Seen by Provider: 11/18/20 10:12 Source of Information: Reports: Patient, Family (Son, Sherman), Old Records ([facility] chart/EMR), Other ([facility] EMR reviewed on 03/19/2020) History Limitations: Reports: No Limitations - History of Present Illness INITIAL COMMENTS - FREE TEXT/NARRATIVE: The patient was brought to the emergency room via private automobile by her son for evaluation of progressive nonspecific dizziness and intermittent nausea and emesis with symptoms starting on 11/14/2019. She also has had some increasing sinus mucus drainage with secondary mild nonproductive cough and bilateral 89/10 throbbing bilateral frontal headache, possibly consistent with her previous migraine headaches. The patient did take Mucinex yesterday with no significant improvement of her symptoms to this point. She did have 2 episodes of emesis yesterday with only mild nausea at this time. The patient denies any chest pain/pressure, heart flutter, orthostasis, orthopnea, diaphoresis, paresthesias, recent decreased exercise tolerance, or any other anginal-type symptoms. No recent history of abdominal pain, heartburn, diarrhea, melena, gross hematochezia, or any food intolerance, including fatty foods, etc. with normal bowel movement earlier this morning. She denies any gross hematuria, colic, or the UTI symptoms. The patient also denies any recent fever, wheezing, dyspnea, etc.. No history of recent visual changes, diplopia, change in mental status, or other change in neurological status. Onset: Gradual Onset Date: 11/13/20 Duration: Getting Worse, Intermittent Location: Reports: Head. Denies: Face, Neck, Chest, Abdomen, Back, Upper Extremity, Left, Upper Extremity, Right, Radiates to Quality: Reports: Same as Previous Episode, Throbbing Severity: Severe Improves with: Reports: None Worsens with: Reports: None Context: Reports: Other (As above). Denies: Sick Contact, Trauma Associated Symptoms: Reports: Cough, Headaches, Nausea/Vomiting. 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: Other Medication(s) (As above) Bilateral Frontal Headache Pain Score (Numeric/FACES): 9 - Related Data Allergies Allergy/AdvReac Type Severity Reaction Status Date / Time morphine Allergy Hallucinati Verified 11/18/20 11:07 ons NSAIDS (Non-Steroidal Allergy Diarrhea Verified 11/18/20 11:07 Anti-Inflamma piroxicam [From Feldene] Allergy Difficulty Verified 11/18/20 11:07 Breathing Sulfa (Sulfonamide Allergy Abdominal Verified 11/18/20 11:07 Antibiotics) Pain tolmetin sodium Allergy Abdominal Verified 11/18/20 11:07 [From Tolectin] Pain Home Meds: Home Meds Amitriptyline [Elavil] 12.5 mg PO BEDTIME 12/23/13 [History] B Complex With Vitamin C [Super B Complex with C] 1 each PO DAILY 12/23/13 [His tory] Multivitamin [Multi-Vitamin Daily] 1 each PO DAILY 12/23/13 [History] Verapamil [Verelan] 240 mg PO DAILY 12/23/13 [History] Lactobacillus 3/Fos/Pantethine [Probiotic & Acidophilus] 1 tab PO DAILY 03/14/19 [History] Cholecalciferol (Vitamin D3) [Vitamin D3] 1,000 unit PO DAILY 03/19/20 [History] Irbesartan [Avapro] 150 mg PO DAILY 03/19/20 [History] Pantoprazole Sodium [Protonix] 40 mg PO DAILY 03/19/20 [History] carvediloL [Carvedilol] 6.25 mg PO DAILY 03/19/20 [History] Zinc 50 mg PO DAILY 11/18/20 [History] Past Medical History HEENT History: Reports: Allergic Rhinitis, Cataract, Impaired Vision, Sinusitis, Other (See Below). Denies: Glaucoma, Hard of Hearing, Macular Degeneration, Otitis Media Other HEENT History: Patient wears glasses. History of allergic rhinitis/sinusitis. 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 Cardiovascular History: Reports: Heart Murmur, High Cholesterol, Hypertension, Other (See Below). Denies: Afib, Aneurysm, Arrhythmia, Blood Clots/VTE/DVT, CAD, Cardiomyopathy, AZ, PTCA, PVD, Syncope Other Cardiovascular History: Cardiomegaly by chest x-ray. Moderate aortic valve insufficiency with additional mitral valve insufficiency by echocardiogram. Respiratory History: Reports: Bronchitis, Recurrent, COPD, Intubation, Previous, Pneumonia, Recurrent, Other (See Below). Denies: Asthma, Intubation, Difficult, PE, Pneumothorax, Sleep Apnea, TB Other Respiratory History: COPD by chest x-ray with no current medical therapy. Childhood asthma with frequent pneumonia as a child. Gastrointestinal History: Reports: Cholelithiasis, Chronic Diarrhea, Colon Polyp, Diverticulosis, Gastritis, GERD, Hiatal Hernia, Other (See Below). Denies: Celiac Disease, Chronic Constipation, Fecal Incontinence, Inflammatory Bowel Disease, Irritable Bowel Syndrome, Jaundice, Pancreatitis, PUD Other Gastrointestinal History: Esophagitis by EGD. Genitourinary History: Reports: UTI, Recurrent, Other (See Below). Denies: Acute Renal Failure, Chronic Renal Insuffiency, Renal Calculus, Retention, Urinary, STD, Urinary Incontinence Other Genitourinary History: Difficulty emptying bladder QUARRY SUPERVISOR History: Reports: , Prolapsed Uterus, Spontaneous . Denies: Dysfunctional Uterine Bleeding, Endometriosis, Fibroids : 2 Para: 1 LMP (Approximate): Other (See Below) Other QUARRY SUPERVISOR History: Surgical menopause secondary to prolapsed bladder/uterus as below. 1 elective SAB during first trimester. Otherwise, full term without complications during pregnancies or deliveries. Note positive BRCA gene. Musculoskeletal History: Reports: Arthritis, Back Pain, Chronic, Fibromyalgia, Osteoarthritis, Osteoporosis, Other (See Below). Denies: Fracture, Gout, Neck Pain, Chronic, RA, SLE Other Musculoskeletal History: Severe scoliosis. Neurological History: Reports: Headaches, Chronic, Migraines, TIA, Vertigo, Other (See Below). Denies: Cerebral Aneurysms, CVA, Head Trauma, MS, Seizure Other Neuro History: TIA with secondary expressive aphasia on 03/21/2016 with work-up as below. Psychiatric History: Reports: Anxiety, Depression. Denies: Abuse, Victim of, ADD, ADHD, Addiction, Alzheimers Disease, Dementia, Hallucinations, Psych Hospitalization(s), Psychosis, PTSD, Suicide Attempt, Suicidal Ideation Endocrine/Metabolic History: Reports: Hypokalemia, Hypomagnesemia, Obesity/BMI 30+, Vitamin D Deficiency, Other (See Below). Denies: Diabetes, Gestational, Diabetes, Type I, Diabetes, Type II, Diabetes Mellitus, Type 3c, Hypothyroidism, IDDM Other Endocrine/Metabolic History: Hyponatremia. Hematologic History: Reports: None. Denies: Anemia, Blood Transfusion(s), Other (See Below) Immunologic History: Reports: None. Denies: AIDS, HIV, SLE Oncologic (Cancer) History: Reports: None. Denies: Basal Cell Carcinoma, Breast, Cervix, Colon, Hodgkin's Lymphoma, Leukemia, Lymphoma, Malignant Melanoma, Metastatic, Non-Hodgkin's Lymphoma, Ovarian, Squamous Cell Carcinoma, Thyroid, Uterine Dermatologic History: Reports: Eczema, Other (See Below). Denies: Psoriasis Other Dermatologic History: Eczema as a child. - Infectious Disease History Infectious Disease History: Reports: Chicken Pox, Measles, Mumps, Rubella. Denies: C-Difficile, Meningitis, Mononucleosis, MRSA, Novel Coronavirus, Pertussis (Whooping Cough), Rheumatic Fever, Scarlet Fever, Shingles, TB, VRE - Past Surgical History Head Surgeries/Procedures: Reports: None HEENT Surgical History: Reports: Adenoidectomy, Cataract Surgery, Eye Surgery, Laser Surgery, Oral Surgery, Tonsillectomy, Other (See Below). Denies: LASIK, Myringotomy w Tube(s), Naso-Sinus Surgery Other HEENT Surgeries/Procedures: Tonsillectomy and adenoidectomy as a child. Laser treatment of her right eye in July 2016 and 05/18/2018. Right cataract extraction in 2007. [place] teeth extraction x2 at age 33 with additional multiple teeth extractions. Cardiovascular Surgical History: Reports: None. Denies: Varicose Respiratory Surgical History: Reports: None. Denies: Thoracentesis GI Surgical History: Reports: Appendectomy, Cholecystectomy, Colonoscopy, EGD, Polypectomy, Other (See Below). Denies: Hernia, Abdominal, Hernia, Inguinal, Hernia Repair/Other Other GI Surgeries/Procedures: Appendectomy at age 15. EGD on 11/22/2014. Colonoscopy on 11/22/2014 and 09/03/2011. Laparoscopic cholecystectomy at age 61. Female Surgical History: Reports: D&C, Dilitation & Evacuation, Hysterectomy, Tubal Ligation, Other (See Below). Denies: Section, Salpingo- Oophorectomy Other Female Surgeries/Procedures: Note elective SAB as above. Partial hysterectomy with concomitant bladder suspension at age 61. Previous tubal ligation at unknown age. Endocrine Surgical History: Reports: None. Denies: Thyroid Biopsy Neurological Surgical History: Reports: Discectomy, Lumbar Spine. Denies: C- Spine, Intracranial, Laminectomy, Sacral Spine, Scoliosis, Spinal Fusion, Thoracic Spine, Vertebroplasty Other Neurological Surgeries/Procedures: Discectomy of the lumbar region in November 2000. Musculoskeletal Surgical History: Reports: None. Denies: Arthroscopic Procedure, Carpal Tunnel, Ganglion Cyst, Joint Replacement, Knee Replacement, ORIF, Shoulder Surgery Oncologic Surgical History: Reports: None Dermatological Surgical History: Reports: None - Past Imaging History Past Imaging History: Reports: Cardiac Echo (Last echocardiogram on 03/16/2019 with ejection fraction of 60-65% with otherwise findings as above. Previous evaluations on 12/24/2017 and 03/23/2016.), CAT Scan (CT a of the head and neck on 03/22/2016. CT of the head on 03/10/2014. CT of the abdomen and pelvis on 05/28. CT myelogram of the back on 11/28/2000.), DEXA Scan (Last on 11/07/2015 with previous evaluation on 10/19/2013.), Mammogram (Last mammogram per our records on 04/22/2019.), MRA (Brain on 03/22/2016), Ultrasound (Pelvic ultrasound on 01/20/2008) Social & Family History - Family History Cardiac: Reports: CAD, Heart Failure, AZ, Stent, Other (See Below) Other Cardiac Family History: Father with CHF. Parents with coronary artery disease. Son with history of AZ and PTCA/stent of the RCA at 52 years of age. Respiratory: Reports: COPD, Other (See Below) Other Respiratory Family Hisory: Father with COPD. GI: Reports: Colon Polyps, Other (See Below) Other GI Family History: Paternal uncle with colon cancer as below. Oncologic: Reports: Colon, Ovarian, Pancreatic, Other (See Below) Other Oncologic Family History: Paternal uncle with colon cancer. Brother with prostate cancer in his 60s. Sister with ovarian cancer at age 66. - Tobacco Use Tobacco Use Status *Q: Never Tobacco User Tobacco Use Within Last Twelve Months: No Used Tobacco, but Quit: No Smoking Cessation Information Provided To Patient: No Second Hand Smoke Exposure: No Second Hand Smoke Education Provided: No - Caffeine Use Caffeine Use: Reports: None. Denies: Coffee, Energy Drinks, Soda, Tea - Alcohol Use Alcohol Use History: Yes Days Per Week of Alcohol Use: 0 Number of Drinks Per Day: 1 Number of Drinks Per Day Comment: Usually 1 mixed drink per year. No previous DWIs, problems with alcohol abuse, etc. 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 ED EXAM, GENERAL - Physical Exam Exam: See Below Exam Limited By: No Limitations General Appearance: Alert, WD/WN, No Apparent Distress, Anxious (Mild to moderate) Eye Exam: Bilateral Eye: EOMI, Normal Fundi, Normal Inspection (No nystagmus or vertigo. Patient is wearing glasses), PERRL Ears: Normal External Exam, Normal Canal, Hearing Grossly Normal, Normal TMs Nose: Normal Inspection, Normal Mucosa, No Blood Throat/Mouth: Normal Inspection, Normal Lips, Normal Teeth, Normal Gums, Normal Oropharynx, Normal Voice, No Airway Compromise. No: Dysphagia, Perioral Cyano sis Head: Atraumatic, Normocephalic. No: Facial Swelling, Facial Tenderness, Sinus Tenderness Neck: Supple, Non-Tender, Full Range of Motion, Carotid Bruit (Mild bilateral carotid bruits versus transmitted heart sounds). No: Lymphadenopathy (L), Lymphadenopathy (R), Thyromegaly Respiratory/Chest: No Respiratory Distress, Lungs Clear, Normal Breath Sounds, No Accessory Muscle Use, Chest Non-Tender. No: Pleural Rub, Retractions Cardiovascular: Normal Peripheral Pulses, Regular Rate, Rhythm, No Edema, No Gallop, No JVD, No Rub, Systolic Murmur (Stable 2/6 DEEPALI of aortic and mitral valves). No: Gallop/S3, Gallop/S4, Friction Rub Peripheral Pulses: 2+: Radial (L), Radial (R), Dorsalis Pedis (L), Dorsalis Pedis (R) GI/Abdominal: Normal Bowel Sounds, Soft, Non-Tender, No Organomegaly, No Distention, No Abnormal Bruit, No Mass, Pelvis Stable, Other (Obese). No: Guarding (Female) Exam: Deferred Rectal (Female) Exam: Deferred Back Exam: Full Range of Motion, Other (Severe scoliosis). No: CVA Tenderness (L), CVA Tenderness (R), Muscle Spasm, Paraspinal Tenderness, Vertebral Tenderness Extremities: Normal Inspection, Normal Range of Motion, Non-Tender, No Pedal Edema, Normal Capillary Refill. No: Riaz's Sign Neurological: Alert, Oriented, CN II-XII Intact, Normal Cognition, Normal Gait, Normal Reflexes (Negative Babinski's, finger to nose, and pronator rotation tests. No evidence of facial paresis, tongue deviation, orthostasis, etc.. Excellent reverse thought processes.), No Motor/Sensory Deficits, Other (No clinical orthostasis) Psychiatric: Anxious (Mild to moderate), Depressed Mood (Borderline) Course - Vital Signs Last Recorded V/S: Last Vital Signs Temp 36.1 C 11/18/20 10:15 Pulse 71 11/18/20 11:30 Resp 19 11/18/20 11:30 BP 157/79 H 11/18/20 11:30 Pulse Ox 100 11/18/20 11:30 Vital Signs - 24 hr 11/18/20 11/18/20 10:15 11:30 Temperature [ 36.1 C Temporal] Pulse, 74 71 Peripheral [ Pulse Oximetry] Respiratory 18 19 Rate Blood Pressure 165/75 H 157/79 H [Right Upper Arm] O2 Sat by Pulse 100 100 Oximetry - Orders/Labs/Meds Orders: Active Orders 24 hr Category Date Time Status Abdomen Series w Chest 1V [CR] Stat Exams 11/18/20 10:16 Taken Isolation [COMM] Routine Oth 11/18/20 10:19 Active Obtain Past Medical Record [OM.PC] Urgent Oth 11/18/20 10:16 Active Peripheral IV Insertion Adult [OM.PC] Stat Oth 11/18/20 10:16 Ordered Resuscitation Status Stat Resus Stat 11/18/20 10:16 Ordered Labs: Laboratory Tests 11/18/20 11/18/20 11/18/20 Range/Units 10:25 10:25 10:25 WBC 7.4 (4.0-10.2) K/uL RBC 4.69 (3.77-5.09) M/uL Hgb 13.8 (11.7-15.5) g/dL Hct 40.6 (34.0-46.0) % MCV 86.6 (84.0-98.0) fL MCH 29.4 (28.2-33.3) pg MCHC 34.0 (31.7-36.0) g/dL RDW 13.3 (11.2-14.1) % Plt Count 228 (150-350) K/uL Neut % (Auto) 60.9 (45.0-80.0) % Lymph % (Auto) 26.8 (10.0-50.0) % [place] % (Auto) 8.7 (2.0-14.0) % Eos % (Auto) 3.5 (0.0-5.0) % Baso % (Auto) 0.1 (0.0-2.0) % Neut # (Auto) 4.49 (1.40-7.00) K/uL Lymph # (Auto) 1.98 (0.50-3.50) K/uL [place] # (Auto) 0.64 (0.00-1.00) K/uL Eos # (Auto) 0.26 (0.00-0.50) K/uL Baso # (Auto) 0.01 (0.00-0.20) K/uL PT 10.8 (9.5-12.0) SEC INR 1.1 APTT 24.8 (24.5-32.8) SEC Sodium (136-145) mmol/L Potassium (3.5-5.1) mmol/L Chloride (98-107) mmol/L Carbon Dioxide (21.0-32.0) mmol/L BUN (7-18) mg/dL Creatinine (0.51-1.17) mg/dL Est Cr Clr Drug Dosing Estimated GFR (MDRD) mL/min Glucose (70-99) mg/dL Lactic Acid (0.4-2.0) mmol/L Uric Acid (2.6-7.2) mg/dL Calcium (8.5-10.1) mg/dL Magnesium (1.8-2.4) mg/dL Total Bilirubin (0.2-1.0) mg/dL AST (15-37) U/L ALT (12-78) U/L Alkaline Phosphatase (46-116) IU/L Total Protein (6.4-8.2) g/dL Albumin (3.4-5.0) g/dL Amylase 48 (25-115) U/L Lipase (73-393) U/L SARS-CoV-2 RNA (TIFFANY) (NEGATIVE) 11/18/20 11/18/20 11/18/20 Range/Units 10:25 10:25 10:55 WBC (4.0-10.2) K/uL RBC (3.77-5.09) M/uL Hgb (11.7-15.5) g/dL Hct (34.0-46.0) % MCV (84.0-98.0) fL MCH (28.2-33.3) pg MCHC (31.7-36.0) g/dL RDW (11.2-14.1) % Plt Count (150-350) K/uL Neut % (Auto) (45.0-80.0) % Lymph % (Auto) (10.0-50.0) % [place] % (Auto) (2.0-14.0) % Eos % (Auto) (0.0-5.0) % Baso % (Auto) (0.0-2.0) % Neut # (Auto) (1.40-7.00) K/uL Lymph # (Auto) (0.50-3.50) K/uL [place] # (Auto) (0.00-1.00) K/uL Eos # (Auto) (0.00-0.50) K/uL Baso # (Auto) (0.00-0.20) K/uL PT (9.5-12.0) SEC INR APTT (24.5-32.8) SEC Sodium 134 L (136-145) mmol/L Potassium 4.1 (3.5-5.1) mmol/L Chloride 100 (98-107) mmol/L Carbon Dioxide 21.4 (21.0-32.0) mmol/L BUN 14 (7-18) mg/dL Creatinine 0.76 (0.51-1.17) mg/dL Est Cr Clr Drug Dosing TNP Estimated GFR (MDRD) > 60 mL/min Glucose 94 (70-99) mg/dL Lactic Acid 2.4 H (0.4-2.0) mmol/L Uric Acid 4.5 (2.6-7.2) mg/dL Calcium 8.6 (8.5-10.1) mg/dL Magnesium 2.1 (1.8-2.4) mg/dL Total Bilirubin 0.6 (0.2-1.0) mg/dL AST 16 (15-37) U/L ALT 23 (12-78) U/L Alkaline Phosphatase 87 (46-116) IU/L Total Protein 6.7 (6.4-8.2) g/dL Albumin 3.9 (3.4-5.0) g/dL Amylase (25-115) U/L Lipase 121 (73-393) U/L SARS-CoV-2 RNA (TIFFANY) Negative (NEGATIVE) Microbiology 11/18/20 10:55 Influenza Type A Antigen Screen - Final Nasal, Unspecified NEGATIVE INFLUENZA A VIRUS AG REFERENCE RANGE: NEGATIVE Influenza Type B Antigen Screen - Final NEGATIVE INFLUENZA B VIRUS AG REFERENCE RANGE: NEGATIVE Meds: Medications Discontinued Medications Generic Name Dose Route Start Last Admin Trade Name Freq PRN Reason Stop Dose Admin Diazepam 2.5 mg 11/18/20 10:28 Diazepam 10 Mg/2 Ml Syringe IVPUSH 11/18/20 10:29 ONETIME ONE Famotidine 40 mg 11/18/20 10:16 Famotidine 20 Mg/2 Ml Sdv IVPUSH 11/18/20 10:17 ONETIME ONE Lactated Ringer's 1,000 mls @ 999 mls/hr 11/18/20 10:16 11/18/20 10:32 Ringers, Lactated IV 11/18/20 11:16 999 mls/hr .BOLUS ONE Administration Metoclopramide HCl 10 mg 11/18/20 10:28 Metoclopramide 10 Mg/2 Ml Sdv IVPUSH 11/18/20 10:29 ONETIME ONE Ondansetron HCl 4 mg 11/18/20 10:16 Ondansetron 4 Mg/2 Ml Sdv IVPUSH 11/18/20 10:17 ONETIME ONE Pantoprazole Sodium 40 mg 11/18/20 10:16 Pantoprazole 40 Mg Vial IVPUSH 11/18/20 10:17 ONETIME ONE Sodium Chloride 10 ml 11/18/20 10:16 11/18/20 10:48 Sodium Chloride 0.9% 10 Ml Syringe FLUSH 10 ml ASDIRECTED PRN Administration Keep Vein Open - Radiology Interpretation Free Text/Narrative:: Acute abdominal x-ray shows evidence of mild to moderate pulmonary obstructive disease with no pulmonary infiltrates, CHF, pneumothorax, etc. Mild to moderate cardiomegaly with mild to moderate aortic valve calcification with mild prominence of the proximal aortic arch. Severe scoliosis. Moderate osteoarthritic and osteoporotic changes in the thoracic spine. Moderate diffuse stool with no free air, fluid levels, ileus, obstruction, etc. Note status post cholecystectomy. Departure - Departure Time of Disposition: 12:00 Disposition: Home, Self-Care 01 Condition: Good Clinical Impression: Mixed anxiety depressive disorder, HTN, Benign hypertension, Valvular heart disease, Hyponatremia, Hyponatremia, Lactic acid increased GERD (gastroesophageal reflux disease) Qualifiers: Esophagitis presence: esophagitis presence not specified Qualified Code(s): K21.9 - Gastro-esophageal reflux disease without esophagitis Migraine Qualifiers: Migraine type: with aura Status migrainosus presence: without status migrainosus Intractability: not intractable Qualified Code(s): G43.109 - Migraine with aura, not intractable, without status migrainosus COPD (chronic obstructive pulmonary disease) Qualifiers: COPD type: emphysema Emphysema type: panlobular Qualified Code(s): J43.1 - Panlobular emphysema - Discharge Information *PRESCRIPTION DRUG MONITORING PROGRAM REVIEWED*: Not Applicable *COPY OF PRESCRIPTION DRUG MONITORING REPORT IN PATIENT RINA: Not Applicable Instructions: Migraine Headache, [id number] Referrals: Linda Ross PA [Primary Care Provider] - Forms: ED Department Discharge Additional Instructions: 1. Follow up with your regular provider on 11/20 for reevaluation and recommended repeat kidney/renal panel and lactic acid level. Bring these discharge instructions with you to that visit. 2. Ice packs to head and neck, dark and quiet room, etc. as directed until headache resolves. 3. [place] diet including encouragement of oral fluids such as sports drinks, etc. for 24-48 hours as directed. Advance to heart healthy, diverticulosis diet as tolerated thereafter. 4. Please remember that we are ALWAYS here for you and want to answer any questions you may have. Feel free to call the hospital any time and we call you back CHELE. 5. Sedation precautions for 12 hours as discussed secondary to meds given in the ER. 6. Tylenol 650 mg every 4 hours as needed. 7. Continue to watch your blood pressures closely thru your regular provider. Sepsis Event Note (ED) - Focused Exam Vital Signs: Vital Signs Temp Pulse Resp BP Pulse Ox 11/18/20 11:30 71 19 157/79 H 100 11/18/20 10:15 36.1 C 74 18 165/75 H 100 - Problem List & Annotations (1) Migraine SNOMED Code(s): 98916768 Code(s): G43.909 - MIGRAINE, UNSP, NOT INTRACTABLE, WITHOUT STATUS MIGRAINOSUS Status: Acute Priority: High Onset Date: ~11/17/20 Annotation/Comment:: IV Reglan and IV diltiazem given in the emergency room with overall good results. Headache and sedation precautions given as per discharge instructions. Note probable anxiety and allergic rhinitis components. Qualifiers: Migraine type: with aura Status migrainosus presence: without status migrainosus Intractability: not intractable Qualified Code(s): G43.109 - Migraine with aura, not intractable, without status migrainosus (2) Lactic acid increased SNOMED Code(s): 78744338 Code(s): E87.2 - ACIDOSIS Status: Acute Priority: High Onset Date: 11/18/20 Annotation/Comment:: Only mild lactic acid level elevation likely to her mild nausea and emesis from her migraine headache as above. No leukocytosis, fever, signs of infection, or clinical evidence of sepsis. One liter IVB of LR given with no indication for antibiotics, blood cultures, etc. Close follow up by regular provider as per discharge instructions. (3) GERD (gastroesophageal reflux disease) SNOMED Code(s): 773216613 Code(s): K21.9 - GASTRO-ESOPHAGEAL REFLUX DISEASE WITHOUT ESOPHAGITIS Status: Chronic Priority: Medium Annotation/Comment:: High-dose IV Pepcid and IV Protonix given as GI prophylaxis. Overall stable by history and nonproblematic at this time. Qualifiers: Esophagitis presence: esophagitis presence not specified Qualified Code(s): K21.9 - Gastro-esophageal reflux disease without esophagitis (4) HTN, Benign hypertension SNOMED Code(s): 82235703 Code(s): I10 - ESSENTIAL (PRIMARY) HYPERTENSION Status: Chronic Priority: Medium Annotation/Comment:: Somewhat elevated in the emergency room initially. Continue to observe closely by her regular provider. (5) Mixed anxiety depressive disorder SNOMED Code(s): 135061125 Code(s): F41.8 - OTHER SPECIFIED ANXIETY DISORDERS Status: Chronic Priority: Medium Annotation/Comment:: Moderate control by today's exam, however overall. Stable by history. (6) Hyponatremia SNOMED Code(s): 20826172 Code(s): E87.1 - HYPO-OSMOLALITY AND HYPONATREMIA Status: Chronic Priority: Medium Annotation/Comment:: Mildly decreased sodium level with otherwise normal potassium, magnesium, etc.. 1 L lactated Ringer's IV bolus given. Continue to observe for now with symptomatic relief as per discharge instructions, including sports drinks, etc. (7) Valvular heart disease SNOMED Code(s): 519854 Code(s): I38 - ENDOCARDITIS, VALVE UNSPECIFIED Status: Chronic Priority: Medium Annotation/Comment:: Aortic valve stenosis and mitral valve insufficiency as above. No chest pain or anginal type symptoms. By patient history she does have an echocardiogram scheduled at [facility] on 11/20/[address] Hernandez. (8) COPD (chronic obstructive pulmonary disease) SNOMED Code(s): [id number] Code(s): J44.9 - CHRONIC OBSTRUCTIVE PULMONARY DISEASE, UNSPECIFIED Status: Chronic Priority: Medium Annotation/Comment:: No recent fever or true bronchitic type symptoms. COPD by chest x-ray with no current medical therapy required. Patient did receive her influenza booster and also two Moderna COVID- 19 immunizations with last dose on 09/27/2020. Qualifiers: COPD type: emphysema Emphysema type: panlobular Qualified Code(s): J43.1 - Panlobular emphysema - Problem List Review Problem List Initiated/Reviewed/Updated: Yes - My Orders Last 24 Hours: My Active Orders 11/18/20 10:16 Abdomen Series w Chest 1V [CR] Stat Obtain Past Medical Record [OM.PC] Urgent Peripheral IV Insertion Adult [OM.PC] Stat Resuscitation Status Stat 11/18/20 10:19 Isolation [COMM] Routine - Assessment/Plan Last 24 Hours: My Active Orders 11/18/20 10:16 Abdomen Series w Chest 1V [CR] Stat Obtain Past Medical Record [OM.PC] Urgent Peripheral IV Insertion Adult [OM.PC] Stat Resuscitation Status Stat 11/18/20 10:19 Isolation [COMM] Routine Assessment:: As above Plan: As above. Extensive precautions were given to the patient and her son, who are in agreement with the treatment plan. See Patient Instructions for further treatment and plan.
[2020-11-18] MEDS ORDERED: Metoclopramide 10 MG/2 ML SDV IVPUSH ONE (10:28)
[2020-11-18 10:48] LABS: CHLORIDE,CL 100 mmol/L (98-107); SODIUM,NA 134 mmol/L (136-145)
[2020-11-18 11:03] LABS: PTT,PARTIAL THROMBOPLSTIN TIME 24.8 SEC (24.5-32.8)
[2020-11-18 11:31] VITALS: BP 157/79; PULSE 71
== END 2020-11-18 12:00 | disposition home or self-care (01) ==
LOC: LL.ED 10:12
DX: J43.1 Panlobular emphysema (principal); G43.109 Migraine with aura, not intractable, without status migrainosus; K21.9 Gastro-esophageal reflux disease without esophagitis; F41.8 Other specified anxiety disorders; I10 Essential (primary) hypertension; I38 Endocarditis, valve unspecified; E87.1 Hypo-osmolality and hyponatremia; E66.9 Obesity, unspecified; R74.01 Elevation of levels of liver transaminase levels; Z20.822 Contact with and (suspected) exposure to COVID-19; Z88.5 Allergy status to narcotic agent; Z88.8 Allergy status to other drugs, medicaments and biological substances; Z88.2 Allergy status to sulfonamides; Z79.899 Other long term (current) drug therapy; Z86.73 Personal history of transient ischemic attack (TIA), and cerebral infarction without residual deficits
CPT/HCPCS: 36415; 74022; 80053; 82150; 83605; 83690; 83735; 84550; 85025; 85610; 85730; 87804; 99284; 99284-25; J2765; J3360; J3490; J7120; U0002

== ENCOUNTER 2021-05-11 08:55 | Emergency (ER) | payer MEDICARE, OTHER ==
[2021-05-11] MEDS ORDERED: Ondansetron 4 MG Tab.DIS PO ONE (09:15)
[2021-05-11 10:03] LABS: CHLORIDE,CL 99 mmol/L (98-107); SODIUM,NA 135 mmol/L (136-145)
[2021-05-11 10:07] LABS: ANION GAP 13.6 meq/L (7-15)
[2021-05-11 10:09] VITALS: BP 163/82; PULSE 68
--- NOTE | 2021-05-11 10:55 | EDM.PDOC ---
ED HPI GENERAL MEDICAL PROBLEM - General Chief Complaint: General Stated Complaint: Not feeling well Time Seen by Provider: 05/11/21 09:14 Source of Information: Reports: Patient History Limitations: Reports: No Limitations - History of Present Illness INITIAL COMMENTS - FREE TEXT/NARRATIVE: Patient comes to ER with multiple complaints. Has not felt well for a month. Reports lightheadedness, usually with ambulation, that is episodic. Intermittent SOB/chills over last few weeks. No fevers. Last few days has had some nausea and loose stools. Went to clinic yesterday and had a UA performed that was unremarkable. Patient says she has had electrolyte imbalance in past and wonders if that is the problem. No other reported acute changes other than decreased appetite. Bilateral Knees Pain Score (Numeric/FACES): 8 - Related Data Allergies Allergy/AdvReac Type Severity Reaction Status Date / Time morphine Allergy Hallucinati Verified 05/11/21 08:56 ons NSAIDS (Non-Steroidal Allergy Diarrhea Verified 05/11/21 08:56 Anti-Inflamma piroxicam [From Feldene] Allergy Difficulty Verified 05/11/21 08:56 Breathing Sulfa (Sulfonamide Allergy Abdominal Verified 05/11/21 08:56 Antibiotics) Pain tolmetin sodium Allergy Abdominal Verified 05/11/21 08:56 [From Tolectin] Pain Home Meds: Home Meds B Complex With Vitamin C [Super B Complex with C] 1 each PO DAILY 12/23/13 [History] Multivitamin [Multi-Vitamin Daily] 1 each PO DAILY 12/23/13 [History] Verapamil [Verelan] 240 mg PO DAILY 12/23/13 [History] Lactobacillus 3/Fos/Pantethine [Probiotic & Acidophilus] 1 tab PO DAILY 03/14/19 [History] Cholecalciferol (Vitamin D3) [Vitamin D3] 1,000 unit PO DAILY 03/19/20 [History] Irbesartan [Avapro] 150 mg PO DAILY 03/19/20 [History] Pantoprazole Sodium [Protonix] 40 mg PO DAILY 03/19/20 [History] carvediloL [Carvedilol] 6.25 mg PO DAILY 03/19/20 [History] Azithromycin [Zithromax] 250 mg PO DAILY #6 tab 05/11/21 [Rx] Furosemide [Lasix] 10 mg PO DAILY #5 tab 05/11/21 [Rx] Meclizine [Antivert] 25 mg PO Q6H PRN #50 tab 05/11/21 [Rx] Past Medical History HEENT History: Reports: Allergic Rhinitis, Cataract, Impaired Vision, Sinusitis, Other (See Below) Other HEENT History: Patient wears glasses. History of allergic rhinitis/sinusitis. 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 Cardiovascular History: Reports: Heart Murmur, High Cholesterol, Hypertension, Other (See Below) Other Cardiovascular History: Cardiomegaly by chest x-ray. Moderate aortic valve insufficiency with additional mitral valve insufficiency by echocardiogram. Respiratory History: Reports: Bronchitis, Recurrent, COPD, Intubation, Previous, Pneumonia, Recurrent, Other (See Below) Other Respiratory History: COPD by chest x-ray with no current medical therapy. Childhood asthma with frequent pneumonia as a child. Gastrointestinal History: Reports: Cholelithiasis, Chronic Diarrhea, Colon Polyp, Diverticulosis, Gastritis, GERD, Hiatal Hernia, Other (See Below) Other Gastrointestinal History: Esophagitis by EGD. Genitourinary History: Reports: UTI, Recurrent, Other (See Below) Other Genitourinary History: Difficulty emptying bladder FAMILY SUPPORT SPECIALIST History: Reports: , Prolapsed Uterus, Spontaneous Other FAMILY SUPPORT SPECIALIST History: Surgical menopause secondary to prolapsed bladder/uterus a s below. 1 elective SAB during first trimester. Otherwise, full term without complications during pregnancies or deliveries. Note positive BRCA gene. Musculoskeletal History: Reports: Arthritis, Back Pain, Chronic, Fibromyalgia, Osteoarthritis, Osteoporosis, Other (See Below) Other Musculoskeletal History: Severe scoliosis. Neurological History: Reports: Headaches, Chronic, Migraines, TIA, Vertigo, Other (See Below) Other Neuro History: TIA with secondary expressive aphasia on 03/21/2016 with work-up as below. Psychiatric History: Reports: Anxiety, Depression Endocrine/Metabolic History: Reports: Hypokalemia, Hypomagnesemia, Obesity/BMI 30+, Vitamin D Deficiency, Other (See Below) Other Endocrine/Metabolic History: Hyponatremia. Hematologic History: Reports: None Immunologic History: Reports: None Oncologic (Cancer) History: Reports: None Dermatologic History: Reports: Eczema, Other (See Below) Other Dermatologic History: Eczema as a child. - Infectious Disease History Infectious Disease History: Reports: Chicken Pox, Measles, Mumps, Rubella - Past Surgical History Head Surgeries/Procedures: Reports: None HEENT Surgical History: Reports: Adenoidectomy, Cataract Surgery, Eye Surgery, Laser Surgery, Oral Surgery, Tonsillectomy, Other (See Below) Other HEENT Surgeries/Procedures: Tonsillectomy and adenoidectomy as a child. Laser treatment of her right eye in July 2016 and 05/18/2018. Right cataract extraction in 2007. [place] teeth extraction x2 at age 33 with additional multiple teeth extractions. Cardiovascular Surgical History: Reports: None Respiratory Surgical History: Reports: None GI Surgical History: Reports: Appendectomy, Cholecystectomy, Colonoscopy, EGD, Polypectomy, Other (See Below) Other GI Surgeries/Procedures: Appendectomy at age 15. EGD on 11/22/2014. Colonoscopy on 11/22/2014 and 09/03/2011. Laparoscopic cholecystectomy at age 61. Female Surgical History: Reports: D&C, Dilitation & Evacuation, Hysterectomy, Tubal Ligation, Other (See Below) Other Female Surgeries/Procedures: Note elective SAB as above. Partial hysterectomy with concomitant bladder suspension at age 61. Previous tubal ligation at unknown age. Endocrine Surgical History: Reports: None Neurological Surgical History: Reports: Discectomy, Lumbar Spine Other Neurological Surgeries/Procedures: Discectomy of the lumbar region in November 2000. Musculoskeletal Surgical History: Reports: None Other Musculoskeletal Surgeries/Procedures:: Stem Cell injections into bilateral knees in February 2019 Oncologic Surgical History: Reports: None Dermatological Surgical History: Reports: None - Past Imaging History Past Imaging History: Reports: Cardiac Echo (Last echocardiogram on 03/16/2019 with ejection fraction of 60-65% with otherwise findings as above. Previous evaluations on 12/24/2017 and 03/23/2016.), CAT Scan (CT a of the head and neck on 03/22/2016. CT of the head on 03/10/2014. CT of the abdomen and pelvis on 05/28/2006. CT myelogram of the back on 11/28/2000.), DEXA Scan (Last on 11/07/2015 with previous evaluation on 10/19/2013.), Mammogram (Last mammogram per our records on 04/22/2019.), MRA (Brain on 03/22/2016), Ultrasound (Pelvic ultrasound on 01/20/2008) Social & Family History - Family History Cardiac: Reports: CAD, Heart Failure, [place], Stent, Other (See Below) Other Cardiac Family History: Father with CHF. Parents with coronary artery disease. Son with history of [place] and PTCA/stent of the RCA at 52 years of age. Respiratory: Reports: COPD, Other (See Below) Other Respiratory Family Hisory: Father with COPD. GI: Reports: Colon Polyps, Other (See Below) Other GI Family History: Paternal uncle with colon cancer as below. Oncologic: Reports: Colon, Ovarian, Pancreatic, Other (See Below) Other Oncologic Family History: Paternal uncle with colon cancer. Brother with prostate cancer in his 60s. Sister with ovarian cancer at age 66. 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 Denies: Fever, Night Sweats, Diaphoresis HEENT: Reports: No Symptoms, Glasses Respiratory: Reports: Shortness of Breath. Denies: Wheezing, Pleuritic Chest Pain, Cough, Sputum, Hemoptysis Cardiovascular: Reports: Lightheadedness. Denies: Chest Pain, Blood Pressure Problem, Edema, Orthopnea, Palpitations, PND, Syncope GI/Abdominal: Reports: Diarrhea, Decreased Appetite, Nausea. Denies: Abdominal Pain, Constipation, Difficulty Swallowing, Distension, Hematemesis, Hematochezia, Vomiting : Reports: No Symptoms Musculoskeletal: Reports: Other (no acute changes from baseline) Skin: Reports: No Symptoms Neurological: Reports: Dizziness. Denies: Confusion, Headache, Seizure, Trouble Speaking, Weakness, Change in Speech, Gait Disturbance Psychiatric: Reports: No Symptoms Hematologic/Lymphatic: Reports: No Symptoms ED EXAM, GENERAL - Physical Exam Exam: See Below Exam Limited By: No Limitations General Appearance: Alert, WD/WN, No Apparent Distress Eye Exam: Bilateral Eye: EOMI, PERRL, Other (no nystagmus noted) Ears: Normal External Exam, Normal Canal, Hearing Grossly Normal, Normal TMs Nose: Normal Inspection Throat/Mouth: Normal Inspection, Normal Lips, Normal Voice, No Airway Compromise Head: Atraumatic, Normocephalic Neck: Normal Inspection, Supple, Non-Tender, Full Range of Motion. No: Lymphadenopathy (L), Lymphadenopathy (R) Respiratory/Chest: No Respiratory Distress, Lungs Clear, Normal Breath Sounds, No Accessory Muscle Use, Chest Non-Tender Cardiovascular: Regular Rate, Rhythm, No Edema, Systolic Murmur GI/Abdominal: Normal Bowel Sounds, Soft, Non-Tender, No Distention (Female) Exam: Deferred Rectal (Female) Exam: Deferred Back Exam: No: CVA Tenderness (L), CVA Tenderness (R), Muscle Spasm Extremities: Normal Inspection, Normal Range of Motion, Non-Tender, Normal Capillary Refill Neurological: Alert, Oriented, Normal Cognition, Normal Gait, No Motor/Sensory Deficits Psychiatric: Normal Affect, Normal Mood Skin Exam: Warm, Dry, Intact, Normal Color Course - Vital Signs Last Recorded V/S: Last Vital Signs Temp 36.6 C 05/11/21 09:00 Pulse 68 05/11/21 09:00 Resp 18 05/11/21 09:00 BP 163/82 H 05/11/21 09:00 Pulse Ox 100 05/11/21 09:00 - Orders/Labs/Meds Orders: Active Orders 24 hr Category Date Time Status Chest 2V [CR] Stat Exams 05/11/21 09:05 Taken Isolation [COMM] Routine Oth 05/11/21 08:58 Active Labs: Laboratory Tests 05/11/21 05/11/21 05/11/21 Range/Units 09:10 09:31 09:31 WBC 9.6 (4.0-10.2) K/uL RBC 4.89 (3.77-5.09) M/uL Hgb 14.5 (11.7-15.5) g/dL Hct 42.6 (34.0-46.0) % MCV 87.1 (84.0-98.0) fL MCH 29.7 (28.2-33.3) pg MCHC 34.0 (31.7-36.0) g/dL RDW 13.2 (11.2-14.1) % Plt Count 256 (150-350) K/uL Neut % (Auto) 75.9 (45.0-80.0) % Lymph % (Auto) 16.8 (10.0-50.0) % B[place] % (Auto) 6.5 (2.0-14.0) % Eos % (Auto) 0.6 (0.0-5.0) % Baso % (Auto) 0.2 (0.0-2.0) % Neut # (Auto) 7.30 H (1.40-7.00) K/uL Lymph # (Auto) 1.62 (0.50-3.50) K/uL Benton # (Auto) 0.63 (0.00-1.00) K/uL Eos # (Auto) 0.06 (0.00-0.50) K/uL Baso # (Auto) 0.02 (0.00-0.20) K/uL Sodium 135 L (136-145) mmol/L Potassium 3.8 (3.5-5.1) mmol/L Chloride 99 (98-107) mmol/L Carbon Dioxide 26.2 (21.0-32.0) mmol/L Anion Gap 13.6 (7-15) meq/L BUN 11 (7-18) mg/dL Creatinine 0.76 (0.51-1.17) mg/dL Est Cr Clr Drug Dosing 42.41 mL/min Estimated GFR (MDRD) > 60 mL/min Glucose 108 H (70-99) mg/dL Lactic Acid (0.4-2.0) mmol/L Calcium 9.0 (8.5-10.1) mg/dL Magnesium 2.1 (1.8-2.4) mg/dL Total Bilirubin 0.6 (0.2-1.0) mg/dL AST 16 (15-37) U/L ALT 27 (12-78) U/L Alkaline Phosphatase 92 (46-116) IU/L NT-Pro-B Natriuret Pep (0-125) pg/mL Total Protein 7.5 (6.4-8.2) g/dL Albumin 4.1 (3.4-5.0) g/dL SARS-CoV-2 RNA (TIFFANY) Negative (NEGATIVE) 05/11/21 05/11/21 Range/Units 09:31 09:31 WBC (4.0-10.2) K/uL RBC (3.77-5.09) M/uL Hgb (11.7-15.5) g/dL Hct (34.0-46.0) % MCV (84.0-98.0) fL MCH (28.2-33.3) pg MCHC (31.7-36.0) g/dL RDW (11.2-14.1) % Plt Count (150-350) K/uL Neut % (Auto) (45.0-80.0) % Lymph % (Auto) (10.0-50.0) % Benton % (Auto) (2.0-14.0) % Eos % (Auto) (0.0-5.0) % Baso % (Auto) (0.0-2.0) % Neut # (Auto) (1.40-7.00) K/uL Lymph # (Auto) (0.50-3.50) K/uL Benton # (Auto) (0.00-1.00) K/uL Eos # (Auto) (0.00-0.50) K/uL Baso # (Auto) (0.00-0.20) K/uL Sodium (136-145) mmol/L Potassium (3.5-5.1) mmol/L Chloride (98-107) mmol/L Carbon Dioxide (21.0-32.0) mmol/L Anion Gap (7-15) meq/L BUN (7-18) mg/dL Creatinine (0.51-1.17) mg/dL Est Cr Clr Drug Dosing mL/min Estimated GFR (MDRD) mL/min Glucose (70-99) mg/dL Lactic Acid 1.1 (0.4-2.0) mmol/L Calcium (8.5-10.1) mg/dL Magnesium (1.8-2.4) mg/dL Total Bilirubin (0.2-1.0) mg/dL AST (15-37) U/L ALT (12-78) U/L Alkaline Phosphatase (46-116) IU/L NT-Pro-B Natriuret Pep 1567 H (0-125) pg/mL Total Protein (6.4-8.2) g/dL Albumin (3.4-5.0) g/dL SARS-CoV-2 RNA (TIFFANY) (NEGATIVE) Meds: Medications Discontinued Medications Generic Name Dose Route Start Last Admin Trade Name Geraldoq PRN Reason Stop Dose Admin Ondansetron HCl 4 mg 05/11/21 09:15 05/11/21 09:28 Ondansetron 4 Mg Tab.Dis PO 05/11/21 09:16 4 mg ONETIME ONE Administration - Re-Assessments/Exams Free Text/Narrative Re-Assessment/Exam: 05/11/21 11:43 chest xray showed some patchiness at bases/cannot exclude pneumonia. Also suspect mild chf. WBC normal. Mild decrease NA. ProBNP elevated but no signs of significant fluid overload on exam. UA negative for UTI. Plan at this time is to treat with Zithromax to cover for potential mild pneumonia given the chills/SOB/chest xray. They SOB may be reflecting mild CHF given her valvular disease/elevated ProBNP. Will have her try a very low dose of Lasix for 5 days. Also PRN Meclizine. She is to see how she feels after the above interventions. If symptoms persist, she is to follow up with her clinic again for further evaluation. Precautions reviewed. To follow up in ER prn sudden worsening. Patient agreeable with plan. Departure - Departure Time of Disposition: 10:50 Disposition: Home, Self-Care 01 Condition: Good Clinical Impression: SOB (shortness of breath), Light-headed feeling, Chills (without fever), Loose stools - Discharge Information *PRESCRIPTION DRUG MONITORING PROGRAM REVIEWED*: Not Applicable *COPY OF PRESCRIPTION DRUG MONITORING REPORT IN PATIENT RINA: Not Applicable Prescriptions: Meclizine [Antivert] 25 mg PO Q6H PRN #50 tab PRN Reason: Dizziness Furosemide [Lasix] 10 mg PO DAILY #5 tab Azithromycin [Zithromax] 250 mg PO DAILY #6 tab Instructions: Meclizine tablets or capsules, Furosemide Oral Tablets, Shortness of Breath, Adult, [id number], Azithromycin tablets, Dizziness, [id number] Referrals: PCP,Unknown [Primary Care Provider] - Forms: ED Department Discharge Additional Instructions: See how you feel after taking the diuretic and Zithromax. The diuretic helps with fluid overload, and the Zithromax will target pneumonia. Follow up with your provider next week if no significant improvement. Follow up otherwise as needed for sudden problems. Sepsis Event Note (ED) - Evaluation Sepsis Screening Result: No Definite Risk - Focused Exam Vital Signs: Vital Signs Temp Pulse Resp BP Pulse Ox 05/11/21 09:00 36.6 C 68 18 163/82 H 100 - My Orders Last 24 Hours: My Active Orders 05/11/21 08:58 Isolation [COMM] Routine 05/11/21 09:05 Chest 2V [CR] Stat - Assessment/Plan Last 24 Hours: My Active Orders 05/11/21 08:58 Isolation [COMM] Routine 05/11/21 09:05 Chest 2V [CR] Stat
== END 2021-05-11 11:19 | disposition home or self-care (01) ==
LOC: LL.ED 08:55
DX: R42 Dizziness and giddiness (principal); R06.02 Shortness of breath; K92.1 Melena; J44.9 Chronic obstructive pulmonary disease, unspecified; E78.00 Pure hypercholesterolemia, unspecified; I10 Essential (primary) hypertension; E66.9 Obesity, unspecified; Z86.73 Personal history of transient ischemic attack (TIA), and cerebral infarction without residual deficits; Z88.5 Allergy status to narcotic agent; Z88.2 Allergy status to sulfonamides; Z88.8 Allergy status to other drugs, medicaments and biological substances; Z20.822 Contact with and (suspected) exposure to COVID-19; Z68.25 Body mass index [BMI] 25.0-25.9, adult
CPT/HCPCS: 36415; 71046; 80053; 83605; 83735; 83880; 85025; 87804; 99285; A9270; U0002; 99284

== ENCOUNTER 2023-05-24 08:15 | Emergency (ER) | payer MEDICARE, OTHER ==
[2023-05-24 08:45] LABS: BASOPHILS ABSOLUTE AUTO 0.03 K/uL (0.00-0.20); BASOPHILS PERCENT AUTO 0.3 % (0.0-2.0); EOSINOPHILS ABSOLUTE AUTO 0.15 K/uL (0.00-0.50); EOSINOPHILS PERCENT AUTO 1.5 % (0.0-5.0); HEMATOCRIT 37.6 % (34.0-46.0); HEMOGLOBIN 12.6 g/dL (11.7-15.5); LYMPHOCYTES ABSOLUTE AUTO 0.97 K/uL (0.50-3.50); LYMPHOCYTES PERCENT AUTO 9.6 % (10.0-50.0); MEAN CORPUSCULAR HEMOGLOBIN 29.7 pg (28.2-33.3); MEAN CORPUSCULAR HGB CONC 33.5 g/dL (31.7-36.0); MEAN CORPUSCULAR VOLUME 88.7 fL (84.0-98.0); MONOCYTES ABSOLUTE AUTO 0.63 K/uL (0.00-1.00); MONOCYTES PERCENT AUTO 6.2 % (2.0-14.0); NEUTROPHILS ABSOLUTE AUTO 8.32 K/uL (1.40-7.00); NEUTROPHILS PERCENT AUTO 82.4 % (45.0-80.0); PLATELET COUNT,PLT 162 K/uL (150-350); RED BLOOD CELL COUNT 4.24 M/uL (3.77-5.09); RED CELL DISTRIBUTION WIDTH 13.4 % (11.2-14.1); WHITE BLOOD CELL COUNT,WBC 10.1 K/uL (4.0-10.2)
[2023-05-24 08:52] VITALS: BP 158/87; PULSE 75
[2023-05-24 09:04] LABS: INR 1.1 (0.9-1.1); PROTHROMBIN TIME 11.3 SEC (9.0-11.1)
[2023-05-24 09:14] LABS: ALBUMIN 3.5 g/dL (3.4-5.0); BILIRUBIN TOTAL 0.9 mg/dL (0.2-1.0); CALCIUM 8.9 mg/dL (8.5-10.1); CARBON DIOXIDE,CO2 23.9 mmol/L (21.0-32.0); CREATININE 0.85 mg/dL (0.51-1.17); EST CRCL DRUG DOSING (CG) 36.65 mL/min; POTASSIUM,K 3.6 mmol/L (3.5-5.1); PROTEIN TOTAL,TP 6.4 g/dL (6.4-8.2)
[2023-05-24 09:15] LABS: ANION GAP 14.7 meq/L (7-15)
[2023-05-24 09:29] LABS: CORONAVIRUS COVID-19 NAA NEGATIVE (NEGATIVE); INFLUENZA A NAA NEGATIVE (NEGATIVE); INFLUENZA B NAA NEGATIVE (NEGATIVE); RESPIRATORY SYNCYTIAL VIR NAA NEGATIVE (NEGATIVE)
[2023-05-24] MEDS: Furosemide 40 MG Tab PO ONE (09:46)
== END 2023-05-24 10:20 | disposition home or self-care (01) ==
LOC: LL.ED 08:15
DX: E73.9 Lactose intolerance, unspecified (principal); R19.7 Diarrhea, unspecified; R79.89 Other specified abnormal findings of blood chemistry; Z88.0 Allergy status to penicillin; Z88.5 Allergy status to narcotic agent; Z88.2 Allergy status to sulfonamides; Z88.8 Allergy status to other drugs, medicaments and biological substances; Z88.1 Allergy status to other antibiotic agents; Z91.011 Allergy to milk products; Z79.82 Long term (current) use of aspirin; Z20.822 Contact with and (suspected) exposure to COVID-19
CPT/HCPCS: 0241U; 36415; 80053; 83880; 84484; 85025; 85610; 93005; 99284; A9270

== ENCOUNTER 2023-10-16 16:47 | Emergency (ER) | payer MEDICARE, OTHER ==
[2023-10-16 17:38] LABS: BASOPHILS ABSOLUTE AUTO 0.03 K/uL (0.00-0.20); BASOPHILS PERCENT AUTO 0.2 % (0.0-2.0); EOSINOPHILS ABSOLUTE AUTO 0.09 K/uL (0.00-0.50); EOSINOPHILS PERCENT AUTO 0.7 % (0.0-5.0); HEMATOCRIT 37.9 % (34.0-46.0); HEMOGLOBIN 12.5 g/dL (11.7-15.5); LYMPHOCYTES ABSOLUTE AUTO 1.77 K/uL (0.50-3.50); LYMPHOCYTES PERCENT AUTO 14.4 % (10.0-50.0); MEAN CORPUSCULAR HEMOGLOBIN 29.6 pg (28.2-33.3); MEAN CORPUSCULAR VOLUME 89.6 fL (84.0-98.0); MONOCYTES ABSOLUTE AUTO 1.34 K/uL (0.00-1.00); MONOCYTES PERCENT AUTO 10.9 % (2.0-14.0); NEUTROPHILS ABSOLUTE AUTO 9.02 K/uL (1.40-7.00); NEUTROPHILS PERCENT AUTO 73.8 % (45.0-80.0); PLATELET COUNT,PLT 184 K/uL (150-350); RED BLOOD CELL COUNT 4.23 M/uL (3.77-5.09); WHITE BLOOD CELL COUNT,WBC 12.3 K/uL (4.0-10.2)
[2023-10-16 17:46] LABS: ANION GAP 10.5 meq/L (7-15); BLOOD UREA NITROGEN,BUN 21 mg/dL (7-18); CALCIUM 8.4 mg/dL (8.5-10.1); CARBON DIOXIDE,CO2 26.5 mmol/L (21.0-32.0); CHLORIDE,CL 102 mmol/L (98-107); CREATININE 1.13 mg/dL (0.51-1.17); GLUCOSE RANDOM 103 mg/dL (70-99); POTASSIUM,K 3.5 mmol/L (3.5-5.1); SODIUM,NA 139 mmol/L (136-145)
[2023-10-16 17:49] LABS: ESTIMATED GFR 49 mL/min (>=60)
[2023-10-16 18:47] VITALS: BP 149/83; PULSE 80
== END 2023-10-16 18:40 | disposition home or self-care (01) ==
LOC: LL.ED 16:47
DX: M25.462 Effusion, left knee (principal); I11.0 Hypertensive heart disease with heart failure; I50.9 Heart failure, unspecified; J44.9 Chronic obstructive pulmonary disease, unspecified; E66.9 Obesity, unspecified; Z79.82 Long term (current) use of aspirin; Z88.5 Allergy status to narcotic agent; Z91.011 Allergy to milk products; Z88.2 Allergy status to sulfonamides; Z88.6 Allergy status to analgesic agent; Z88.8 Allergy status to other drugs, medicaments and biological substances; Z86.73 Personal history of transient ischemic attack (TIA), and cerebral infarction without residual deficits; Z79.899 Other long term (current) drug therapy; Z90.49 Acquired absence of other specified parts of digestive tract; Z90.710 Acquired absence of both cervix and uterus
CPT/HCPCS: 36415; 80048; 85025; 85379; 99283

== ENCOUNTER 2023-11-06 10:00 | Emergency (ER) | payer MEDICARE, OTHER ==
[2023-11-06 10:38] LABS: BASOPHILS ABSOLUTE AUTO 0.04 K/uL (0.00-0.20); BASOPHILS PERCENT AUTO 0.4 % (0.0-2.0); EOSINOPHILS ABSOLUTE AUTO 0.24 K/uL (0.00-0.50); EOSINOPHILS PERCENT AUTO 2.1 % (0.0-5.0); HEMATOCRIT 45.2 % (34.0-46.0); LYMPHOCYTES ABSOLUTE AUTO 1.87 K/uL (0.50-3.50); LYMPHOCYTES PERCENT AUTO 16.6 % (10.0-50.0); MEAN CORPUSCULAR HEMOGLOBIN 30.1 pg (28.2-33.3); MEAN CORPUSCULAR HGB CONC 33.2 g/dL (31.7-36.0); MEAN CORPUSCULAR VOLUME 90.6 fL (84.0-98.0); MONOCYTES ABSOLUTE AUTO 1.19 K/uL (0.00-1.00); MONOCYTES PERCENT AUTO 10.6 % (2.0-14.0); NEUTROPHILS ABSOLUTE AUTO 7.92 K/uL (1.40-7.00); NEUTROPHILS PERCENT AUTO 70.3 % (45.0-80.0); PLATELET COUNT,PLT 171 K/uL (150-350); RED BLOOD CELL COUNT 4.99 M/uL (3.77-5.09); RED CELL DISTRIBUTION WIDTH 16.7 % (11.2-14.1); WHITE BLOOD CELL COUNT,WBC 11.3 K/uL (4.0-10.2)
[2023-11-06 11:13] LABS: ALANINE AMINOTRANSFERASE,ALT 30 U/L (12-78); ALBUMIN 3.9 g/dL (3.4-5.0); ALKALINE PHOSPHATASE 108 IU/L (46-116); ANION GAP 13.6 meq/L (7-15); ASPARTATE AMNIOTRANSFERASE,AST 21 U/L (15-37); BLOOD UREA NITROGEN,BUN 25 mg/dL (7-18); CARBON DIOXIDE,CO2 25.4 mmol/L (21.0-32.0); CHLORIDE,CL 101 mmol/L (98-107); CREATININE 1.07 mg/dL (0.51-1.17); GLUCOSE RANDOM 135 mg/dL (70-99); POTASSIUM,K 4.4 mmol/L (3.5-5.1); PRO B-TYPE NATRIUR PEPT,BNPPRO 4421 pg/mL (0-125); PROTEIN TOTAL,TP 6.8 g/dL (6.4-8.2); SODIUM,NA 140 mmol/L (136-145)
[2023-11-06 11:16] LABS: ESTIMATED GFR 52 mL/min (>=60)
[2023-11-06 11:21] VITALS: BP 101/61; PULSE 61
== END 2023-11-06 12:15 | disposition home or self-care (01) ==
LOC: LL.ED 10:00
DX: I95.9 Hypotension, unspecified (principal); I11.0 Hypertensive heart disease with heart failure; I50.9 Heart failure, unspecified; J44.9 Chronic obstructive pulmonary disease, unspecified; Z88.0 Allergy status to penicillin; Z88.8 Allergy status to other drugs, medicaments and biological substances; Z88.5 Allergy status to narcotic agent; Z88.2 Allergy status to sulfonamides; Z91.011 Allergy to milk products; Z79.899 Other long term (current) drug therapy; Z79.82 Long term (current) use of aspirin; Z86.19 Personal history of other infectious and parasitic diseases; Z90.49 Acquired absence of other specified parts of digestive tract
CPT/HCPCS: 36415; 80053; 83605; 83735; 83880; 85025; 93005; 99285

== ENCOUNTER 2023-12-01 16:29 | Emergency (ER) | payer MEDICARE, OTHER ==
[2023-12-01 16:35] VITALS: BP 160/85; PULSE 77
[2023-12-01] MEDS: Diphtheria,Pertussis(Acell),Tetanus Vaccine 0.5 ML Syringe IM ONE (17:41)
== END 2023-12-01 18:45 | disposition home or self-care (01) ==
LOC: LL.ED 16:29
DX: S52.591A Other fractures of lower end of right radius, initial encounter for closed fracture (principal); S01.01XA Laceration without foreign body of scalp, initial encounter; I10 Essential (primary) hypertension; J44.9 Chronic obstructive pulmonary disease, unspecified; E66.9 Obesity, unspecified; Z86.73 Personal history of transient ischemic attack (TIA), and cerebral infarction without residual deficits; Z79.899 Other long term (current) drug therapy; Z79.82 Long term (current) use of aspirin; Z88.2 Allergy status to sulfonamides; Z88.6 Allergy status to analgesic agent; Z88.8 Allergy status to other drugs, medicaments and biological substances; Z88.5 Allergy status to narcotic agent; Z88.1 Allergy status to other antibiotic agents; Z88.0 Allergy status to penicillin; Z23 Encounter for immunization; W01.0XXA Fall on same level from slipping, tripping and stumbling without subsequent striking against object, initial encounter
CPT/HCPCS: 12001; 29125; 73030-RT; 73110-RT; 90471; 90715; 99283-25

== ENCOUNTER 2023-12-02 21:35 | Emergency (ER) | payer MEDICARE, OTHER ==
[2023-12-02 21:39] VITALS: BP 151/67; PULSE 68
[2023-12-02] MEDS: Take Home: traMADol 50 MG, 4 Tab Pack PO ONE (22:24)
== END 2023-12-02 22:30 | disposition home or self-care (01) ==
LOC: LL.ED 21:35
DX: M25.531 Pain in right wrist (principal); S52.501D Unspecified fracture of the lower end of right radius, subsequent encounter for closed fracture with routine healing; I10 Essential (primary) hypertension; J44.9 Chronic obstructive pulmonary disease, unspecified; E66.9 Obesity, unspecified; Z79.899 Other long term (current) drug therapy; Z79.82 Long term (current) use of aspirin; Z88.2 Allergy status to sulfonamides; Z88.6 Allergy status to analgesic agent; Z88.5 Allergy status to narcotic agent; Z88.8 Allergy status to other drugs, medicaments and biological substances; Z88.0 Allergy status to penicillin; Z88.1 Allergy status to other antibiotic agents; W18.41XD Slipping, tripping and stumbling without falling due to stepping on object, subsequent encounter
CPT/HCPCS: 99283; A9270